=== PATIENT | male | born 1950 | race Caucasian/White ===

== ENCOUNTER 2021-06-04 10:09 | Outpatient (CLI) | payer OTHER, SELFPAY ==
[2021-06-04 10:59] LABS: Basophils Absolute Auto 0.1 K/mm3 (0.0-0.1); Basophils Percent Auto 0.9 % (0.2-1.2); Eosinophils Absolute Auto 0.1 K/mm3 (0-0.3); Hematocrit 48.7 % (42.0-52.0); Hemoglobin 16.5 g/dL (14.0-18.0); Immature Granulocyte Absolute 0.05 K/mm3 (0.00-0.031); Immature Granulocyte Percent A 0.5 % (0-0.5); Lymphocytes Absolute Auto 2.11 K/mm3 (0.9-3.2); Lymphocytes Percent Auto 19.3 % (18.3-44.2); Mean Corpuscular HGB Conc 33.9 g/dl (32-36); Mean Corpuscular Hemoglobin 32.4 pg (26-34); Mean Corpuscular Volume 95.7 fl (80-100); Monocytes Absolute Auto 0.9 K/mm3 (0.1-0.6); Monocytes Percent Auto 8.4 % (2.6-8.5); Neutrophils Absolute Auto 7.7 K/mm3 (1.3-6.7); Neutrophils Percent Auto 69.9 % (45.5-73.1); Platelet Count Result 284 k/mm3 (150-375); Red Blood Count 5.09 M/mm3 (4.6-6.20); Red Cell Distribution Width 12.1 % (11.5-14.5)
[2021-06-04 11:15] LABS: Alanine Aminotransferase 20 U/L (4-50); Albumin Level 4.4 g/dL (3.5-5.1); Alkaline Phosphatase 56 U/L (38-126); Anion Gap 8 mmol/L (8-16); Aspartate Amino Transferase 28 U/L (17-59); Bilirubin,Total 0.9 mg/dL (0.2-1.3); Blood Urea Nitrogen 13 mg/dL (9-20); Calcium 9.8 mg/dL (8.4-10.2); Carbon Dioxide 22 mmol/L (22-30); Chloride 110 mmol/L (98-107); Cholesterol 198 mg/dL (0-200); Estimated Glomerular Filt Rate > 60; Glucose 102 mg/dL (65-110); HDL Direct 51 mg/dL; Potassium 4.3 mmol/L (3.4-5.0); Sodium 140 mmol/L (137-145); Triglycerides 80 mg/dL (<150)
[2021-06-04 11:26] LABS: LDL Cholesterol Direct 117 mg/dL
[2021-06-04 11:41] LABS: Prostate Specific Antigen 37.1 ng/mL (< OR = 4.0)
[2021-06-04 12:22] LABS: Vitamin D 25 Hydroxy 45.7 ng/mL
== END 2021-06-04 10:10 | disposition home or self-care (01) ==
LOC: ANHLAB 10:21
PROVIDERS: PCP Internal Medicine; Visit Provider Internal Medicine
DX: E55.9 Vitamin D deficiency, unspecified (principal); I10 Essential (primary) hypertension; R19.5 Other fecal abnormalities; R97.20 Elevated prostate specific antigen [PSA]; E78.2 Mixed hyperlipidemia
CPT/HCPCS: 36415; 80053; 80061; 82306; 84153; 84443; 85025

== ENCOUNTER 2022-04-17 09:45 | Outpatient (CLI) | payer OTHER, SELFPAY ==
--- NOTE | ~2022-04-17 | US_ITS ---
EXAMINATION: US venous doppler LE RT DATE: 04/17/2022 11:04 INDICATION: Right lower limb pain. TECHNIQUE: Grayscale ultrasound images without and with compression and Doppler ultrasound images of the right lower extremity veins were obtained. COMPARISON: None. FINDINGS: The visualized portions of right common femoral vein, profunda (deep) femoral vein, femoral vein, pop liteal vein, peroneal veins, posterior tibial veins, and greater saphenous vein outflow are patent. IMPRESSION: 1. No deep venous thrombosis. Reviewed, dictated and finalized at location B.
--- NOTE | ~2022-04-17 | XR_ITS ---
EXAMINATION: XR hip BI 2V w AP pelvis DATE: 04/17/2022 11:16 INDICATION: Right hip pain. Sciatica. TECHNIQUE: An anteroposterior view of the pelvis and 2 views of each hip were obtained. COMPARISON: CT abdomen and pelvis 04/17/2022 FINDINGS: There is lumbar levocurvature and mild spondylosis. No fracture. There are widespread scler otic lesions of bone. There is a lytic lesion in right sacral ala. There is mild osteoarthritis of th e hips. IMPRESSION: 1. Widespread bone lesions, consistent with metastatic disease. 2. Mild osteoarthritis of the hips. Reviewed, dictated and finalized at location B.
--- NOTE | 2022-04-17 10:14 | ECG_ITS ---
Measurements Intervals [place] Rate: 94 P: 63 WV: 143 QRS: -18 QRSD: 87 T: 12 QT: 353 QTc: 442 Interpretive Statements SINUS RHYTHM LEFTWARD AXIS ABNORMAL ECG NO PREVIOUS ECG AVAILABLE FOR COMPARISON Electronically Signed On 04-17-2022 14:41:38 CDT by Channing Lott M.D.
[2022-04-17 10:28] LABS: Basophils Absolute Auto 0.1 K/mm3 (0.0-0.1); Eosinophils Absolute Auto 0.2 K/mm3 (0-0.3); Eosinophils Percent Auto 1.2 % (0-4.4); Hematocrit 38.9 % (42.0-52.0); Immature Granulocyte Absolute 0.31 K/mm3 (0.00-0.031); Immature Granulocyte Percent A 2.3 % (0-0.5); Lymphocytes Absolute Auto 1.19 K/mm3 (0.9-3.2); Lymphocytes Percent Auto 8.7 % (18.3-44.2); Mean Corpuscular HGB Conc 33.4 g/dl (32-36); Mean Corpuscular Hemoglobin 31.7 pg (26-34); Mean Corpuscular Volume 94.9 fl (80-100); Mean Platelet Volume 10.2 fl (7.4-10.4); Monocytes Absolute Auto 1.2 K/mm3 (0.1-0.6); Neutrophils Absolute Auto 10.7 K/mm3 (1.3-6.7); Neutrophils Percent Auto 77.8 % (45.5-73.1); Platelet Count Result 267 k/mm3 (150-375); Red Cell Distribution Width 13.1 % (11.5-14.5); White Blood Count 13.7 K/mm3 (4.5-10.0)
[2022-04-17 10:39] LABS: Alanine Aminotransferase 32 U/L (6-50); Alkaline Phosphatase 360 U/L (38-126); Anion Gap 10 mmol/L (8-16); Aspartate Amino Transferase 45 U/L (17-59); Blood Urea Nitrogen 45 mg/dL (9-20); Calcium 8.7 mg/dL (8.4-10.2); Carbon Dioxide 21 mmol/L (22-30); Chloride 108 mmol/L (98-107); Estimated Glomerular Filt Rate 13; Glucose 97 mg/dL (65-110); Potassium 4.9 mmol/L (3.4-5.0); Sodium 139 mmol/L (137-145)
== END 2022-04-17 09:46 | disposition home or self-care (01) ==
PROVIDERS: PCP Internal Medicine; Visit Provider Internal Medicine
DX: R97.20 Elevated prostate specific antigen [PSA] (principal); I10 Essential (primary) hypertension; M25.559 Pain in unspecified hip; M54.30 Sciatica, unspecified side; M79.89 Other specified soft tissue disorders; M16.0 Bilateral primary osteoarthritis of hip; R94.31 Abnormal electrocardiogram [ECG] [EKG]
CPT/HCPCS: 36415; 73521; 80053; 84153; 85025; 93005; 93971

== ENCOUNTER 2022-04-17 11:26 | Inpatient (IN) | payer OTHER, SELFPAY ==
[2022-04-17] VITALS (12 sets, daily range): BP systolic 155–186; BP diastolic 87–102; PULSE 96–113; RESP 16–28; TEMP 36.4–36.8; O2SAT 94–98; BMI 27.6
--- NOTE | ~2022-04-17 | XR_ITS ---
EXAM: XR bone survey comp/metastic DATE: 04/19/2022 14:53 HISTORY: bony mets . COMPARISON: None available. FINDINGS: Senescent changes with multifocal peripheral interstitial opacities. Unremarkable cardiome diastinal silhouette. Aerated spaces in the skull are clear. Mildly decreased mineralization. No frac ture or dislocation. Known sclerotic rib lesions are less well seen radiographically. Multifocal scle rotic lesions in the mid and distal right humerus. Known lytic lesion in the right sacrum better seen by CT. Multifocal ill-defined sclerotic lesions in the pelvis and proximal bilateral femurs. Moderat e right glenohumeral and AC joint degenerative change. Multilevel degenerative disc disease in the sp ine. No erosion or periosteal change. Soft tissues within normal limits. Midline pelvic catheter. IMPRESSION: Sclerotic pelvic and bilateral proximal femur lesions. Likely right mid and distal devante l sclerotic lesions. Additional sclerotic lesions in the ribs and spine and a lytic right sacral lesi on better seen by prior CT. Pulmonary opacities may reflect atypical/viral pneumonia overlying senesc ent changes. Reviewed, dictated and finalized at location K. IMPRESSION: Sclerotic pelvic and bilateral proximal femur lesions. Likely right mid and distal humeral sclerotic lesions. Additional sclerotic lesions in the ribs and spine and a lytic right sacral lesion better seen by prior CT. Pulmona ry opacities may reflect atypical/viral pneumonia overlying senescent changes.
--- NOTE | ~2022-04-17 | CT_ITS ---
EXAMINATION: CT abdomen pelvis wo con DATE: 04/17/2022 12:29 INDICATION: Abdominal pain. TECHNIQUE: Computed tomography (CT) of the abdomen and pelvis was performed without intravenous contr ast. Automated exposure control and iterative reconstruction technique were employed. The dose-length product was 433.27 mGy-cm. COMPARISON: None. FINDINGS: There are patchy airspace and groundglass opacities associated with septal thickening in th e lower lobes, right middle lobe, and lingula. There is mild bronchiectasis bilaterally. No pleural e ffusion. The heart size is normal. There are coronary artery calcifications. No pericardial effusion. There is an 8 mm cyst in the liver. The gallbladder is normal. Calcifications in the spleen are cons istent with old granulomatous disease. The pancreas and adrenal glands are normal. There is mild bila teral hydronephrosis and hydroureter. The bladder is markedly distended. The prostate is mildly enlar ged. There is a left inguinal hernia containing fat. There is diverticulosis of the colon without maryann dence of diverticulitis. There are no dilated loops of bowel. The appendix is normal. There are wides pread sclerotic lesions of bone. There is a lytic lesion in right sacral ala. IMPRESSION: 1. Widespread bone lesions, consistent with metastatic disease. 2. Diffuse lung disease, likely atypical pneumonia such as COVID-19 pneumonia. 3. Markedly distended bladder with mild bilateral hydronephrosis and hydroureter. Reviewed, dictated and finalized at location B. IMPRESSION: 1. Widespread bone lesions, consistent with metastatic disease. 2. Diffuse lung disease, likely atypical pneumonia such as COVID-19 pneumonia. 3. Markedly distended bladder with mild bilateral hydronephrosis and hydrourete r.
--- NOTE | ~2022-04-17 | XR_ITS ---
EXAMINATION: XR chest 1V portable DATE: 04/17/2022 13:16 INDICATION: Cough. Weakness. TECHNIQUE: A single frontal view of the chest was obtained. COMPARISON: CT abdomen and pelvis 04/17/2022 FINDINGS: There are patchy airspace and interstitial opacities in all lung zones bilaterally. No pleu ral effusion or pneumothorax. The heart size is normal. IMPRESSION: 1. Diffuse lung disease suspicious for atypical pneumonia such as COVID-19 pneumonia. Reviewed, dictated and finalized at location B. IMPRESSION: 1. Diffuse lung disease suspicious for atypical pneumonia such as COVID-19 pneu monia.
--- NOTE | ~2022-04-17 | MR_ITS ---
EXAMINATION: MR lumbar spine wo con DATE: 04/20/2022 08:17 INDICATION: Bony metastases presenting with low back pain TECHNIQUE: Magnetic resonance imaging (MRI) of the lumbar spine was performed without intravenous con trast. Sequences included sagittal T2-weighted FSE, sagittal T2-weighted FS FSE, sagittal T1-weighted FSE, axial T1-weighted FSE and axial T2-weighted FSE. COMPARISON: CT dated 04/17/2022 FINDINGS: Alignment is normal. Vertebral body heights are normal. Widespread T1 hypointense likely metastatic bone lesions replacing the normal T1 hyperintense marrow fat throughout the visualized bones most prominent at the right sacral ala where there appears to be a nondisplaced sagittally oriented pathologic/insufficiency fracture with secondary associated reacti ve edema. No other fractures identified. Mild right-sided disc height loss at L4-5.. The conus medull monica terminates at L1. There is normal signal in the caudal spinal cord. Paravertebral soft tissues a re unremarkable. 1.4 cm T2 hyperintense right renal cyst. Mild to moderate left hydroureteronephrosis . The following disc levels are specifically discussed: T12-L1: The disc does not extend beyond the endplate margin. There is mild left and moderate right fa cet joint osteoarthritis. There is no neural foraminal stenosis. There is no central canal stenosis. L1-L2: Disc is mildly bulging. There is moderate bilateral facet joint osteoarthritis. There is mild bilateral neural foraminal stenosis. There is mild central canal stenosis. L2-L3: Disc is bulging. There is moderate right and mild left facet joint osteoarthritis. There is mi ld bilateral neural foraminal stenosis. There is mild central canal stenosis. L3-L4: Disc is minimally bulging. There is mild to moderate bilateral facet joint osteoarthritis. The re is mild bilateral neural foraminal stenosis. There is no central canal stenosis. L4-L5: Disc is bulging. There is hypertrophy of the ligamentum flavum. There is severe bilateral fac et joint osteoarthritis. There is moderate right and mild to moderate left neural foraminal stenosis. There is mild central canal stenosis including narrowing of the left and right lateral recesses. L5-S1: Disc is bulging. There is severe bilateral facet joint osteoarthritis. There is mild bilateral neural foraminal stenosis. There is mild, eccentric to the right central canal stenosis with narrowi ng of the right lateral recess. IMPRESSION: 1. Widespread metastatic disease with nondisplaced sagittally oriented pathologic/insufficiency fract ure of the right sacral ala. 2. Lumbar spondylosis with multilevel mild degenerative disease. Moderate to severe mid to lower lumb ar facet osteoarthritis. 3. Mild to moderate left hydroureteronephrosis which given findings on prior CT of mild bilateral hyd roureteronephrosis and marked distention of the bladder suggests outlet obstruction from the enlarged prostate. Reviewed, dictated and finalized at location B. IMPRESSION: 1. Widespread metastatic disease with nondisplaced sagittally oriented patholog ic/insufficiency fracture of the right sacral ala. 2. Lumbar spondylosis with multilevel mild degenerative disease. Moderate to se nito mid to lower lumbar facet osteoarthritis. 3. Mild to moderate left hydroureteronephrosis which given findings on prior CT of mild bilateral hydroureteronephrosis and marked distention of the bladder s uggests outlet obstruction from the enlarged prostate.
--- NOTE | ~2022-04-17 | XR_ITS ---
EXAMINATION: XR chest 2V DATE: 04/20/2022 09:56 INDICATION: Lung disease, COVID 19 TECHNIQUE: AP and lateral views of the chest are obtained. COMPARISON: 04/17/2022 FINDINGS: Patchy interstitial and airspace opacities persist throughout all lung zones with slight im provement. There is no pleural effusion or pneumothorax. The cardiomediastinal silhouette is normal. There are bridging osteophytes at multiple levels in the spine, consistent with diffuse idiopathic sk eletal hyperostosis (DISH). IMPRESSION: 1. Diffuse lung disease with slight improvement, consistent with COVID 19 pneumonia. Reviewed, dictated and finalized at location A. IMPRESSION: 1. Diffuse lung disease with slight improvement, consistent with COVID 19 pneum onia.
--- NOTE | ~2022-04-17 | US_ITS ---
EXAMINATION: US venous doppler [facility] DATE: 04/18/2022 10:22 INDICATION: edema, left lower limb pain. TECHNIQUE: Grayscale images without and with compression and Doppler images of the left lower extremi ty veins were obtained. COMPARISON: None FINDINGS: The left common femoral vein, profunda femoral vein, femoral vein, popliteal vein, peroneal vein, pos terior tibial veins, and greater saphenous vein are patent. IMPRESSION: 1. Patent left lower extremity veins. No evidence of deep venous thrombosis. Reviewed, dictated and finalized at location K.
--- NOTE | ~2022-04-17 | US_ITS ---
EXAMINATION: US renal BI DATE: 04/18/2022 10:22 INDICATION: bph TECHNIQUE: Multiple grayscale and Doppler ultrasound images of the kidneys were obtained. COMPARISON: CT abdomen and pelvis 04/17/2022. FINDINGS: The right kidney measures 10.6 x 4.5 x 5.7 cm. The left kidney measures 9.7 x 5.3 x 4.6 cm. The kidne ys demonstrate normal parenchymal echogenicity.No sonographic evidence of nephrolithiasis. 1.1 cm rig ht midpole simple cyst mild bilateral hydronephrosis. The bladder is decompressed by a Son. IMPRESSION: 1. Mild bilateral hydronephrosis. 2. Simple right midpole cyst. Reviewed, dictated and finalized at location K.
--- NOTE | ~2022-04-17 | NM_ITS ---
EXAMINATION: NM pulmonary perfusion DATE: 04/20/2022 09:45 INDICATION: Shortness of breath. TECHNIQUE: 5.5 mCi Tc-99m MAA was administered intravenously for perfusion images. Scintigraphic mitch ges of the chest were obtained. COMPARISON: Chest 2 views 04/20/2022 FINDINGS: Perfusion images show small defects in the upper lobes and lower lobes. There is a matched moderate s ized defects in right upper lobe. IMPRESSION: 1. Nondiagnostic (intermediate probability for pulmonary embolism). Reviewed, dictated and finalized at location A.
--- NOTE | 2022-04-17 12:14 | PC.NURSE ---
Pt states he has not been able to give a urine specimen.
[2022-04-17 12:21] LABS: INR 1.2; Partial Thromboplastin Time 32.7 SECONDS (22.3-36.8); Prothrombin Time 14.5 Seconds (11.1-14.7)
--- NOTE | 2022-04-17 12:22 | PC.NURSE ---
pt to CT via stretcher
--- NOTE | 2022-04-17 12:35 | PC.NURSE ---
Pt returned from CT via stretcher
--- NOTE | 2022-04-17 13:11 | PC.NURSE ---
Pt noted to have blood around urinary meatus post catheter insertion. Pt cleansed.
[2022-04-17 13:35] LABS: SARS-CoV-2 RNA PCR Positive
--- NOTE | 2022-04-17 13:42 | PC.NURSE ---
Pt noted to have 2000 ml urine output, lei bag clamped.
--- NOTE | 2022-04-17 13:52 | PC.NURSE ---
Pt moved to private room and visitors asked to leave.
[2022-04-17 13:54] LABS: Lactic Acid Reflex 1.5 mmol/L (0.7-2.0)
[2022-04-17 14:28] LABS: Add Urine Microscopic? YES; Appearance Urine Clear (Clear); Bilirubin Urine Negative (Negative); Blood Urine Negative (Negative); Color Urine Amber (Yellow); Glucose Urine UA Negative (Negative); Ketones Urine Negative (Negative); Leukocyte Esterase Ur Negative LEU/UL (Negative); Nitrate Urine Positive (Negative); Protein Urine Trace mg/dL (Negative); Urobilinogen Urine 0.2 mg/dL (<2.0); pH Urine 5.5 (5.0-9.0)
[2022-04-17] MEDS: SODIUM CHLORIDE 0.9% IV 1,000 ML 80 ML IV CONT (14:35)
[2022-04-17] MEDS: HYDROcodone/acetaminophen (*CRX) 5-325 MG TABLET 1 TAB PO (14:35)
--- NOTE | 2022-04-17 14:37 | ED.GENADULT ---
HPI - General Adult General Chief complaint: Recheck/Abnormal Lab/Rx Stated complaint: Sent by PCP after Tests today Time Seen by Provider: 04/17/22 11:30 Source: RN notes reviewed History of Present Illness HPI narrative: Patient presents emergency department from home for abnormal lab work. The patient states that he had gone to 's office today states that he had not seen him for some time and had been having some back pain recently he states he recently gone to the urgent care and been placed on steroids daily pain states that his PCP had ordered a lab test as well as a lower extremity ultrasound and then to be referred to the emergency department for further evaluation he denies any fevers or chills, chest pain shortness of breath states he has been having some lower abdominal pain and also some difficulty urinating. He denies any direct trauma or injury to his back that he is but he has been having aching in his lower back going into his right hip Related Data Home Medications Medication Instructions Recorded Confirmed kosfiuxs-[id number] acid 300 1 tablet PO DAILY 05/27/21 04/17/22 mcg-lycopene 600 mcg-lutein 300 mcg tablet (Centrum Silver Men) omeprazole magnesium 20 mg 20 mg PO DAILY 05/27/21 04/17/22 tablet,delayed release (Prilosec OTC) aspirin 81 mg tablet,delayed 81 mg PO DAILY 06/02/21 04/17/22 release (Adult Aspirin Regimen) Allergies Allergy/AdvReac Type Severity Reaction Status Date / Time No Known Allergies Allergy Verified 04/17/22 15:16 Review of Systems Review of Systems: Gen.: Denies fevers or chills Eyes: Denies eye pain or visual change ENT: Denies congestion Respiratory: Denies shortness of breath or cough CV: Denies chest pain or palpitations GI: Reports lower abdominal pain nausea, emesis or diarrhea reports difficulty urinating Musculoskeletal: See HPI Neuro: Denies numbness, tingling, weakness or focal weakness Skin: Denies rash Except as documented, all other systems reviewed and negative [facility] Past Medical History Medical History Elevated PSA (06/2021) Hypertension Positive colorectal cancer screening using Cologuard test (06/2021) Has yet to have a colonoscopy as of April 2022. Surgical History Surgical History History of cardiac catheterization History of left inguinal hernia repair (07/05/15) History of right inguinal hernia repair (01/25/19) Family History Family History Mother Family history of liver disease Sibling Family history of malignant neoplasm Father Family history of kidney disease Other Family history of cardiovascular disease Hypertension Social History Social History Social History: Surrogate decision maker: More Gil, sister. Code status: Full code. Smoking packs per day: 1 Smoking cigarettes per day: 20.0 Years smoked: 20 Smoking pack-years: 20.00 Smoking status: Former smoker Second hand tobacco smoke exposure: Yes Alcohol intake: never Substance use: current Substance use type: marijuana Living arrangements: alone Occupation/Education: retired Spiritual care concerns: No Exam Narrative: APPEARANCE: No acute distress, nontoxic, resting in bed HEENT: Normocephalic, atraumatic, OMM RESPIRATORY: No respiratory distress, clear to auscultation bilaterally with no rhonchi wheezing or rales CARDIOVASCULAR: RRR s murmur ABDOMINAL: Soft nondistended tender palpation right lower quadrant left lower quadrant no tenderness right upper quadrant left quadrant no rebound or guarding Back: No midline thoracic lumbar tenderness palpation, MUSCULOSKELETAl: Moves all extremities. No clubbing, cyanosis or edema. Tender palpation of the right lateral hip no swelling or ecchymosis full rang
--- NOTE | 2022-04-17 15:00 | PM.IMHP ---
H&P: HPI History of Present Illness Date/Time: 04/17/22 15:00 Chief Complaint: Abnormal labs. Narrative: This is a very pleasant 71-year-old male with hypertension who presented to the emergency department at the instruction of his primary care provider for evaluation of abnormal labs. Several weeks ago he developed right hip pain while out mowing the grass for which he was prescribed diclofenac and a Medrol Dosepak on 04/03/2022. Unfortunately his pain is not better and he has since developed pitting edema in the right leg. He has also had difficulties urinating with urgency, hesitancy, frequency, dysuria, and feelings of being unable to empty his bladder. He saw Dr. Rabago in follow-up today and he was sent for labs and venous Doppler ultrasound of the right leg. Dopplers were negative for DVT. Labs showed several abnormalities including a markedly elevated PSA and a BUN and creatinine of 45 and 4.60 respectively, and he was sent to the ER for evaluation. CT of the abdomen and pelvis showed widespread bone lesions consistent with metastatic disease, markedly distended bladder with mild bilateral hydronephrosis and hydroureter, and diffuse lung disease. Subsequent SARS-CoV-2 by PCR did come back positive. With further questioning, he has noticed some mild shortness of breath with exertion over the past couple of weeks in addition to occasional lightheadedness/dizziness. He denies fever, chills, sweats, sinus congestion, sore throat, change in smell and taste, cough, nausea, vomiting, and diarrhea. He has no known history of malignancy however he was told last fall that PSA was elevated and Cologuard was positive though he did not follow-up with either Gastroenterology or Urology. At the time my evaluation he is feeling much better after his bladder has been drained, and is noted that he has had 3000 mL of urine output since the Son catheter was inserted. Review of Systems Review of Systems: Twelve systems were reviewed. He has lost about 30 lb unintentionally over the past several months. He has not noticed any lymphadenopathy. Occasional bright red blood per rectum which he attributes to a known external hemorrhoids. No history of venous thromboembolism. He denies chest pain, pleuritic pain, and palpitations. No orthopnea orthopnea or paroxysmal nocturnal dyspnea. He has been walking with a walker that his sister gave him recently due to the dizziness. He reports having a couple of falls recently but he has not sustained any injury. No syncope or near syncope. No auditory visual changes. No focal weakness or paresthesias. No confusion. Except as documented, all other systems were reviewed and are negative. [facility] Past Medical History Medical History (Updated 04/17/22 @ 17:26 by Katalina Dsouza PA-C) Elevated PSA (06/2021) Hypertension Positive colorectal cancer screening using Cologuard test (06/2021) Has yet to have a colonoscopy as of April 2022. Surgical History Surgical History (Updated 04/17/22 @ 17:04 by Katalina Dsouza PA-C) History of cardiac catheterization History of left inguinal hernia repair (07/05/15) History of right inguinal hernia repair (01/25/19) Family History Family History Mother Family history of liver disease Sibling Family history of malignant neoplasm Father Family history of kidney disease Other Family history of cardiovascular disease Hypertension Social History Social History (Updated 04/17/22 @ 17:05 by Katalina Dsouza PA-C) Social History: Surrogate decision maker: More Gil, sister. Code status: Full code. Smoking packs per day: 1 Smoking cigarettes per day: 20.0 Years smoked: 20 Smoking pack-years: 20.00 Smoking status: Former smoker Second hand tobacco smoke exposure: Yes Alcohol intake: never Substance use: current Substance use type: marijuana Living arrangements: alone Occupation/Education:
--- NOTE | 2022-04-17 15:13 | ADMGEN ---
This patient, Adolph Chicas, was admitted to Medical Room 343-01. Patient/family oriented to hospital policies and general routines including ID bracelet, bed and alarms, visiting hours, pain management, procedures, bathroom and other care routines, personal items, smoking policy, room service/diet, and visiting hours. Information on how to activate the Rapid Response Team has been discussed. Patient/Family are encouraged to report perceived risks to care and to ask questions if they do not understand what they are told or what they should do.
--- NOTE | 2022-04-17 15:30 | WPDURCON ---
Assessment and Plan Assessment and plan (1) Urinary retention: Code(s): R33.9 - Retention of urine, unspecified Status: Acute Assessment and Plan: 3L of output after insertion of lei. (2) Acute kidney injury: Code(s): N17.9 - Acute kidney failure, unspecified Status: Acute Assessment and Plan: Likely secondary to urinary retention, will continue to monitor, but I suspect this will improve s/p cath placement. (3) Elevated PSA: Onset Date: 06/2021 Code(s): R97.20 - Elevated prostate specific antigen [PSA] Status: Acute Assessment and Plan: >100 today, was 37.1 on 06/04/21. The patient appears to have suspected metastatic prostate cancer, however there has been no biopsy to confirm. Once patient has been discharged, we will plan to do an outpatient prostate biopsy in the office next Wednesday with Dr. Jessica. Send patient home on Levaquin PO 500mg QD x7 days prior to biopsy. We will then plan to start ADT therapy when biopsy results return. No further evaluation while admitted. (4) BPH (benign prostatic hyperplasia): Code(s): N40.0 - Benign prostatic hyperplasia without lower urinary tract symptoms Status: Acute Assessment and Plan: Start Tamsulosin, keep lei in for at least 7-10 days before a voiding trial can be done in the office. (5) UTI (urinary tract infection): Code(s): N39.0 - Urinary tract infection, site not specified Status: Acute Assessment and Plan: Urine Culture and blood cultures are pending, start IV antibiotics. (6) Hydronephrosis: Code(s): N13.30 - Unspecified hydronephrosis Status: Acute Plan Will plan to get a FABI in a couple of days to ensure resolution s/p catheter insertion. Urology Consult Note HPI Date Seen: 04/17/22 Time Seen: 15:30 Requesting Physician: Juwan Garza MD Primary Care Provider: Suman Rabago MD Consult Narrative Reason for consult: HILDA, elevated PSA, retention and Bone Metastatic Disease. Narrative: Adolph Chicas is a 71 year old male who presented to the ER today following an appointment with his PCP Dr. Rabago. He was sent to the hospital to have some labs done and was called when leaving and told to go to the ER for HILDA to be further evaluated. He was found in the ER to be COVID +, have a creatinine of 4.6, a PSA of >100 and WBC of 13.7. His previous PSA in 06/04/21 was 37.1 and baseline creatinine was 0.90 on 06/04/21. He was found to be in urinary retention and have >3L of urine in his bladder upon catheter insertion. He states he was not in pain, but had been urinating every 15 minutes day and night for several weeks. He is hypertensive and tachycardic at this time, but afebrile. His CT scan shows widespread metastatic bone lesions, distended bladder with bilateral hydronephrosis. UA is nitrate positive, urine cultures and blood cultures are pending at this time. The patient states he has never seen a urologist even after his rising PSA that was known in 06/21. However, he did see Dr. Pierce in 05/2015 and had a PSA of 9.4. He was recommended to schedule a prostate biopsy at that time, however he didn't follow up and that was the last office visit from him. It sounds as though after reading Dr. Rabago's note he has also had occult blood in his stool and needs further workup but is non-compliant. Review of Systems Cardiovascular: Cardiovascular: Denies chest pain Respiratory: Respiratory: Reports no additional respiratory complaints Gastrointestinal: Gastrointestinal: Denies abdominal pain, Denies nausea and Denies vomiting Genitourinary: Genitourinary: Denies hematuria, Denies dysuria, Denies flank pain, Reports urinary frequency, Reports urinary hesitancy and Reports urinary urgency PMFSH Past Medical History Medical History Elevated PSA (06/2021) Hypertension Positive colorectal cancer screening usi
[2022-04-17 16:24] LABS: Bacteria Urine Trace /hpf; Squamous Epithelial Cell Urine Rare /hpf (Few)
[2022-04-17 18:10] LABS: D Dimer 14.04 ug/mL (<0.48)
[2022-04-17 18:17] LABS: CRP 1.9 mg/dL (<1.0)
[2022-04-17 18:24] LABS: NT Pro B Type Natriuretic Pept 1680 pg/mL (5-100)
--- NOTE | 2022-04-17 18:43 | PC.NURSE ---
HILIARY JIMMY WISDOM NOTIFIED OF D DIMER
[2022-04-17 18:52] LABS: Procalcitonin 0.3 ng/mL
[2022-04-17] MEDS: amLODIPine BESYLATE 5 MG TABLET PO (19:02)
[2022-04-17] MEDS: traMADol HCL (*CRX) 50 MG TABLET PO (21:59)
[2022-04-17] MEDS: ENOXAPARIN 100 MG/ML SYRINGE 85 MG SUB-Q (21:59)
--- NOTE | 2022-04-17 22:00 | PC.NURSE ---
Patient verified home tube feedings using Glucerna 1.5. Patient states that he does not want a bolus this evening and that he just wants to sleep.
[2022-04-18] VITALS (7 sets, daily range): BP systolic 141–169; BP diastolic 90–100; PULSE 85–124; RESP 16–20; TEMP 36.9–37; O2SAT 93–97
[2022-04-18 05:38] LABS: Basophils Absolute Auto 0.1 K/mm3 (0.0-0.1); Basophils Percent Auto 1.1 % (0.2-1.2); Eosinophils Absolute Auto 0.3 K/mm3 (0-0.3); Hematocrit 36.4 % (42.0-52.0); Hemoglobin 12.2 g/dL (14.0-18.0); Immature Granulocyte Absolute 0.27 K/mm3 (0.00-0.031); Immature Granulocyte Percent A 2.2 % (0-0.5); Lymphocytes Absolute Auto 1.48 K/mm3 (0.9-3.2); Mean Corpuscular HGB Conc 33.5 g/dl (32-36); Mean Corpuscular Hemoglobin 31.7 pg (26-34); Mean Corpuscular Volume 94.5 fl (80-100); Mean Platelet Volume 10.2 fl (7.4-10.4); Monocytes Absolute Auto 1.2 K/mm3 (0.1-0.6); Monocytes Percent Auto 9.3 % (2.6-8.5); Neutrophils Absolute Auto 9.1 K/mm3 (1.3-6.7); Neutrophils Percent Auto 73.4 % (45.5-73.1); Platelet Count Result 218 k/mm3 (150-375); Red Blood Count 3.85 M/mm3 (4.6-6.20); Red Cell Distribution Width 12.9 % (11.5-14.5); White Blood Count 12.3 K/mm3 (4.5-10.0)
[2022-04-18 05:51] LABS: Alanine Aminotransferase 28 U/L (6-50); Albumin Level 3.5 g/dL (3.5-5.1); Alkaline Phosphatase 309 U/L (38-126); Anion Gap 6 mmol/L (8-16); Aspartate Amino Transferase 41 U/L (17-59); Bilirubin,Total 0.9 mg/dL (0.2-1.3); Blood Urea Nitrogen 34 mg/dL (9-20); Calcium 8.6 mg/dL (8.4-10.2); Carbon Dioxide 23 mmol/L (22-30); Chloride 109 mmol/L (98-107); Estimated CRCL calculation 21 ml/min; Estimated Glomerular Filt Rate 21; Glucose 85 mg/dL (65-110); Potassium 4.5 mmol/L (3.4-5.0); Sodium 138 mmol/L (137-145)
[2022-04-18 05:53] LABS: Magnesium 1.8 mg/dL (1.6-2.3); Phosphorus 4.3 mg/dL (2.5-4.5)
[2022-04-18 06:45] LABS: D Dimer 14.29 ug/mL (<0.48)
[2022-04-18] MEDS: amLODIPine BESYLATE 5 MG TABLET PO (09:45)
[2022-04-18] MEDS: PANTOPRAZOLE 40 MG TABLET PO (09:45)
[2022-04-18] MEDS: ASPIRIN 81 MG ENTERIC TABLET PO (09:45)
[2022-04-18] MEDS: OPTI-GEN TAB 1 TABLET PO (09:45)
[2022-04-18] MEDS: TAMSULOSIN HCL 0.4 MG CAPSULE PO (09:45)
--- NOTE | 2022-04-18 12:35 | PM.IMPN ---
Progress Note: A&P Assessment and Plan (1) Acute kidney injury: Code(s): N17.9 - Acute kidney failure, unspecified Status: Acute Assessment and Plan: Related to urinary retention compliated by his medications. He does not appear dry and is eating well so will continue to hold on further IV fluids especially since he has COVID as well. Renal function is improved today. Continue to hold lisinopril and hydrochlorothiazide. Nephrology following. Appreciate their input. Continue to monitor. (2) Urinary retention: Code(s): R33.9 - Retention of urine, unspecified Status: Acute Assessment and Plan: Patient was noted to distended bladder by the CT scan. Son catheter placed and patient had put out over 3 L of urine. Urine retention related to BPH and probably prostate cancer. Urology recommended tamsulosin which was started. Plan is to keep Son in for at least 7 to 10 days before a voiding trial can be done in office. Appreciate urology input. (3) Hydroureteronephrosis: Code(s): N13.30 - Unspecified hydronephrosis Status: Acute Assessment and Plan: Related to urinary retention. This should improve now that Son catheter is in place. Repeat imaging has been ordered to verify resolution. (4) Elevated PSA: Onset Date: 06/2021 Code(s): R97.20 - Elevated prostate specific antigen [PSA] Status: Acute Assessment and Plan: Patient has a history of elevated PSA noted in 2019. Patient presents with acute kidney injury from an obstructive process related to BPH and probably prostate cancer. His PSA is now 942. Imaging studies shows widespread bony metastases. Urology was consulted with plans for an outpatient prostate biopsy in the office next Wednesday with Dr. Jessica. They recommend Levaquin 500 mg daily for 7 days prior to the biopsy depending on renal function at discharge. (5) Pneumonia due to COVID-19 virus: Code(s): U07.1 - COVID-19; J12.82 - Pneumonia due to coronavirus disease 2018 Status: Acute Assessment and Plan: He endorsed mild shortness of breath to the admitting provider but denies SOB or cough now. No indication for dexamethasone or remdesivir at this time. Follow. He was encouraged to have his COVID vaccine when okay with his doctor. (6) Positive colorectal cancer screening using Cologuard test: Onset Date: 06/2021 Code(s): R19.5 - Other fecal abnormalities Status: Acute Assessment and Plan: Cologuatorrie was last fall. He attributes occasional bright red blood per rectum to external hemorrhoids. Patient encouraged to follow-up with gastroenterology for a colonoscopy as an outpatient. Add Colace and Tucks pads (7) Hypertension: Code(s): I10 - Essential (primary) hypertension Status: Acute Assessment and Plan: Blood pressures were reviewed and they are still running high. Lisinopril and hydrochlorothiazide remain on hold. Amlodipine was started. BP has not been checked since this moring dose so will monio for now. (8) Lower extremity edema: Code(s): R60.0 - Localized edema Status: Acute Assessment and Plan: Ultrasound is negative for right leg DVT. Pulmonary embolism considered given his mild shortness of breath, tachycardia, and evidence of malignancy on imaging though he is not hypoxic or tachypneic. HILDA prevents CTA chest and a V/Q scan would be less than ideal. Will follow up on he LLE Doppler. If negative, consider moving to a VQ scan. D-dimer is significantly elevated but probably related to his cnacer. Continue therapeutic, renally dosed Lovenox for now (9) Abnormal urinalysis: Code(s): R82.90 - Unspecified abnormal findings in urine Status: Acute Assessment and Plan: UA noted. UCx pending. Continue ceftriaxone (10) Bony metastasis: Code(s): C79.51 - Secondary malignant neoplasm of bone Status: Acute
--- NOTE | 2022-04-18 13:08 | PM.CNNEP ---
Assessment and Plan Additional Plan 1. the patient has acute kidney injury. This is on top of normal creatinine. He has prostatic obstruction. This is been relieved with a Son catheter and his creatinine is improving. His potassium was amazingly well preserved. His bicarbonate level is a little bit low but has corrected itself this morning. Patient does have chronic hypertension but his baseline creatinine is normal so I do not think this has anything to do with his elevated creatinine. 2. The patient has a very high PSA and appearance of bony Mets on his imaging. Dr. Jessica is on the case. 3. The patient has hypertension. He has never had a heart attack or stroke. It is always been under pretty good control before now. Currently, his blood pressure is a little bit on the high side. He takes hydrochlorothiazide and lisinopril for this. Amlodipine has been started to control his blood pressure. 4. the patient has a positive cologard. He will be getting a colonoscopy at some point. 5. History of Present Illness Reason for Consult Consult date: 04/18/22 Chief Complaint Chief complaint: covid 19,urinary retention,acute failure History of Present Illness Narrative: Adolph is a very pleasant 71-year-old gentleman who has multiple medical problems including longstanding Hypertension, BPH symptoms, and a positive cologard. The patient has had gradually progressive issues with frequency, decreased urinary stream, urgency . He went to see his primary care doctor who checked some labs and his creatinine was elevated so he was sent to the emergency room. The patient has been having some right hip pain. He was treated with diclofenac and a Medrol Dosepak for that but it did not really do any good. So a venous Doppler was done and this was negative as well. Along with the labs showing the elevated creatinine, a PSA was done which was greater than 100. He was evaluated in the emergency room and found to have a distended bladder. A bladder catheter was placed. They drained 1L at a time for a total of 3.5L apparently. He continues to urinate lots through the Son. Overnight his creatinine has improved from 4-2. The patient denies any prior history of kidney disease. No urinary symptoms except for the above. He denies any skin rash itching sores in his mouth hair loss. Review of Systems Constitutional: Constitutional: Reports no additional constitutional complaints Eyes: Eyes: Reports no additional eye complaints ENT: Reports system reviewed and no additional complaints, except as documented Cardiovascular: Cardiovascular: Reports no additional cardiovascular complaints Respiratory: Respiratory: Reports no additional respiratory complaints Gastrointestinal: Gastrointestinal: Reports no additional gastrointestinal complaints Genitourinary: Genitourinary: Reports no additional male genitourinary complaints Musculoskeletal: Musculoskeletal: Reports no additional musculoskeletal complaints Integumentary/Breasts: Skin/Breast: Reports system reviewed and no additional complaints, except as docu Neurologic: Reports system reviewed and no additional complaints, except as documented Psychiatric: Psychiatric: Reports no additional psychiatric complaints Endocrine: Endocrine: Reports no additional endocrine complaints PMF Past Medical History Medical History Elevated PSA (06/2021) Hypertension Positive colorectal cancer screening using Cologuard test (06/2021) Has yet to have a colonoscopy as of April 2022. Surgical History Surgical History History of cardiac catheterization History of left inguinal hernia repair (07/05/15) History of right inguinal hernia repair (01/25/19) Family History Family History Mother Family history
[2022-04-18] MEDS: DOCUSATE SODIUM 100 MG CAPSULE PO ×2 (14:07→21:06)
--- NOTE | 2022-04-18 17:23 | ECHO_ITS ---
Patient Info Name: Adolph Chicas Age: 71 years : 1950 Gender: Male Ht: 69 in Wt: 186 lbs BSA: 2.04 m2 HR: 80 bpm BP: 169 / 100 mmHg Heart Rhythm: Sinus Rhythm Technical Quality: Fair Exam Date: 04/18/2022 12:47 PM Exam Location: [facility] Exam Room: 343 Patient Status: Inpatient Admit Date: 04/17/2022 Staff Ordering Physician: Katalina Dsouza PA-C [employer]: Britt Cunha RDCS Attending Provider: Juwan Garza MD Referring Physician: Lianna LEYVA; Exam Type: CA echo doppler color flow Study Info Indications - PULM IIINFILTRATES HTN EDEMA Complete two-dimensional, color flow and Doppler transthoracic echocardiogram is performed. Summary 1. Complete two-dimensional, color flow and Doppler transthoracic echocardiogram is performed. 2. Left ventricular chamber dimension is normal. 3. Left ventricular systolic function is normal, estimated at 60-65%. 4. There is no increased left ventricular wall thickness. 5. The left ventricular diastolic function is grade I diastolic dysfunction. 6. There is trace tricuspid valve regurgitation. 7. No pulmonary hypertension, estimated pulmonary arterial systolic pressure is 32 mmHg. Left Ventricle Left ventricular chamber dimension is normal. Left ventricular systolic function is normal, estimated at 60-65%. There is no increased left ventricular wall thickness. The left ventricular diastolic function is grade I diastolic dysfunction. Right Ventricle Right ventricular chamber dimension is normal. Right ventricular systolic function is normal. Left Atria Left atrial chamber dimension is mildly enlarged. Right Atria Right atrial chamber dimension is normal. Aortic Valve The aortic valve is not well visualized. There is no aortic valve stenosis. There is no aortic valve regurgitation. Pulmonic Valve The pulmonic valve is not well visualized. Mitral Valve The mitral valve has thickened leaflets. There is trace mitral valve regurgitation. The mitral valve annulus is mildly calcified. Tricuspid Valve The tricuspid valve leaflets are normal. There is trace tricuspid valve regurgitation. No pulmonary hypertension, estimated pulmonary arterial systolic pressure is 32 mmHg. Pericardium/Pleural The pericardium appears normal. There is a small pericardial effusion with fibrinous material within the pericardial space. No evidence for tamponade physiology. Inferior Vena Cava Normal inferior vena cava with >50% collapse upon inspiration consistent with normal right atrial pressure, 5 mmHg. Aorta The aortic root size at the sinus of Valsalva is normal. There is mild aortic atherosclerosis. Left Ventricular Outflow Tract Name Value Normal LVOT 2D LVOT Diameter 2.1 cm LVOT Doppler LVOT Peak Gradient 5 mmHg LVOT Mean Gradient 2 mmHg LVOT VTI 18 cm LVOT VTI/AV VTI Ratio 0.8 LVOT Stroke Volume 66 ml LVOT CO 15.5 l/min
[2022-04-18] MEDS: traMADol HCL (*CRX) 50 MG TABLET PO (21:07)
[2022-04-18] MEDS: ENOXAPARIN 100 MG/ML SYRINGE 85 MG SUB-Q (21:07)
[2022-04-19] VITALS (8 sets, daily range): BP systolic 100–166; BP diastolic 59–92; PULSE 83–133; RESP 16–18; TEMP 35.7–37; O2SAT 96–97
[2022-04-19 06:13] LABS: Basophils Absolute Auto 0.1 K/mm3 (0.0-0.1); Basophils Percent Auto 0.9 % (0.2-1.2); Eosinophils Absolute Auto 0.3 K/mm3 (0-0.3); Eosinophils Percent Auto 2.7 % (0-4.4); Hemoglobin 13.2 g/dL (14.0-18.0); Immature Granulocyte Absolute 0.29 K/mm3 (0.00-0.031); Immature Granulocyte Percent A 2.5 % (0-0.5); Lymphocytes Absolute Auto 1.48 K/mm3 (0.9-3.2); Lymphocytes Percent Auto 12.8 % (18.3-44.2); Mean Corpuscular HGB Conc 32.2 g/dl (32-36); Mean Corpuscular Hemoglobin 30.9 pg (26-34); Mean Platelet Volume 10.5 fl (7.4-10.4); Monocytes Absolute Auto 1.2 K/mm3 (0.1-0.6); Monocytes Percent Auto 10.1 % (2.6-8.5); Neutrophils Absolute Auto 8.2 K/mm3 (1.3-6.7); Platelet Count Result 220 k/mm3 (150-375); Red Blood Count 4.27 M/mm3 (4.6-6.20); White Blood Count 11.6 K/mm3 (4.5-10.0)
[2022-04-19 06:34] LABS: Albumin Level 3.9 g/dL (3.5-5.1); Anion Gap 3 mmol/L (8-16); Blood Urea Nitrogen 30 mg/dL (9-20); Calcium 9.1 mg/dL (8.4-10.2); Carbon Dioxide 28 mmol/L (22-30); Chloride 104 mmol/L (98-107); Estimated CRCL calculation 29 ml/min; Estimated Glomerular Filt Rate 31; Glucose 95 mg/dL (65-110); Magnesium 1.6 mg/dL (1.6-2.3); Phosphorus 4.1 mg/dL (2.5-4.5); Potassium 5.1 mmol/L (3.4-5.0); Sodium 135 mmol/L (137-145)
[2022-04-19] MEDS: TAMSULOSIN HCL 0.4 MG CAPSULE PO (09:06)
[2022-04-19] MEDS: PANTOPRAZOLE 40 MG TABLET PO (09:06)
[2022-04-19] MEDS: DOCUSATE SODIUM 100 MG CAPSULE PO ×2 (09:06→20:45)
[2022-04-19] MEDS: OPTI-GEN TAB 1 TABLET PO (09:06)
[2022-04-19] MEDS: ASPIRIN 81 MG ENTERIC TABLET PO (09:06)
[2022-04-19] MEDS: amLODIPine BESYLATE 5 MG TABLET PO (09:06)
--- NOTE | 2022-04-19 11:32 | PM.PNNEP ---
Progress Note: A&P Additional Plan 1. the patient has acute kidney injury. This is on top of normal creatinine. He has prostatic obstruction. This is been relieved with a Son catheter and his creatinine is improving. His potassium Is slightly high. Follow this. His bicarbonate level is now 28. Patient does have chronic hypertension but his baseline creatinine is normal so I do not think this has anything to do with his elevated creatinine. 2. The patient has a very high PSA and appearance of bony Mets on his imaging. Dr. Jessica is on the case. 3. The patient has hypertension. He has never had a heart attack or stroke. Amlodipine has been started to control his blood pressure. 4. the patient has a positive Cologuard. He will be getting a colonoscopy at some point. 5. Subjective Date/time seen: 04/19/22 11:32 Interval history: Patient feels better today. He is coughing up some phlegm because I have not been smoking my pot . No shortness of breath. No chest pain. Review of Systems Cardiovascular: Cardiovascular: Reports no additional cardiovascular complaints Respiratory: Respiratory: Reports no additional respiratory complaints Gastrointestinal: Gastrointestinal: Reports no additional gastrointestinal complaints Genitourinary: Genitourinary: Reports no additional male genitourinary complaints Exam Narrative: WDWN in NAD skin no rash head ncat lungs clear cor reg no rub abd BS+ nontender and soft ext no edema. Objective Data Vital Signs Vital Signs: Vital Signs - 24 hr 04/18/22 15:00 04/18/22 15:05 04/18/22 15:10 Temperature 36.9 C Pulse Rate 106 H 107 H 124 H Respiratory Rate 16 Blood Pressure 141/90 H 152/100 H 161/91 H Pulse Oximetry 97 93 95 04/18/22 18:44 04/18/22 20:00 04/18/22 22:00 Temperature Pulse Rate 104 H 96 Respiratory Rate 20 Blood Pressure 146/99 H 146/99 H Pulse Oximetry 96 04/19/22 06:00 Temperature 37.0 C Pulse Rate 102 H Respiratory Rate 16 Blood Pressure 152/91 H Pulse Oximetry 97 Intake/Output Intake/Output: Intake & Output 04/16/22 04/17/22 04/18/22 04/19/22 23:59 23:59 23:59 23:59 Intake Total 290 2920 240 Output Total 9220 0800 1500 Balance -4370 -4680 -1260 Meds/Results Medications: Active Medications Generic Name Dose Route Start Last Admin Trade Name Freq PRN Reason Stop Dose Admin Amlodipine Besylate 5 mg 04/17/22 17:30 04/19/22 09:06 Amlodipine Besylate 5 Mg Tablet PO 5 mg QAM VANCE Administration Aspirin 81 mg 04/18/22 09:00 04/19/22 09:06 Aspirin 81 Mg Enteric Tablet PO 81 mg DAILY VANCE Administration Docusate Sodium 100 mg 04/18/22 13:00 04/19/22 09:06 Docusate Sodium 100 Mg Capsule PO 100 mg Q12HR VANCE Administration Enoxaparin Sodium 30 mg 04/19/22 21:00 Enoxaparin 30 Mg/0.3 Ml Syringe SUB-Q Q24H VANCE Ceftriaxone Sodium/Dextrose 1 gm in 50 mls @ 100 mls/hr 04/18/22 15:00 04/18/22 16:50 Rocephin 1 Gm/D5w 50 Ml IVPB Infused Q24H VANCE Infusion Multivitamins/Minerals 1 tablet 04/18/22 09:00 04/19/22 09:06 Opti-Gen Tab PO 1 tablet DAILY VANCE Administration Pantoprazole Sodium 40 mg 04/18/22 09:00 04/19/22 09:06 Pantoprazole 40 Mg Tablet PO 40 mg QAM [facility] Administration Perflutren Lipid Microsphere 0 ml 04/17/22 17:23 Perflutren Lipid Microspheres 1.5 Ml Vial Diluted To 10 Ml Total Volume IV PUSH ONCE PRN adequate visualization Protocol Tamsulosin HCl 0.4 mg 04/18/22 09:00 04/19/22 09:06 Tamsulosin Hcl 0.4 Mg Capsule PO 0.4 mg QAM VANCE Administration Tramadol HCl 50 mg 04/17/22 17:27 04/18/22 21:07 Tramadol Hcl (*Crx) 50 Mg Tablet PO 50 mg Q6H PRN Administration PAIN RATED 4-6 [place] 1 pad 04/18/22 12:56 Witch Kate 40 Pads TOPICAL PRN PRN Perineal Discomfort Radiology Results: ITS Impressions Abdomen/Pelvis CT 04/17/22 12:39 IM
--- NOTE | 2022-04-19 13:07 | PM.IMPN ---
Progress Note: A&P Assessment and Plan (1) Acute kidney injury: Code(s): N17.9 - Acute kidney failure, unspecified Status: Acute Assessment and Plan: Cr 4.6 on admission. HILDA related to urinary retention complicated by his home medications (HCTZ and lisinopril). Treated with IV fluids but these have been stopped. Jenny, will continue to hold IV fluids since he has COVID as well. Renal function is improved today with Cr 2.1 but now potassium higher. Continue to hold lisinopril and hydrochlorothiazide. Nephrology following and appreciate their input. Continue to monitor. (2) Urinary retention: Code(s): R33.9 - Retention of urine, unspecified Status: Acute Assessment and Plan: Patient was noted to distended bladder, bilateral hydronephrosis with hydroureter by the CT scan. Son catheter placed and patient put out over 3 L of urine. Urine retention related to BPH and probably prostate cancer. Urology recommended tamsulosin which was started. Plan is to keep Son in for at least 7 to 10 days before a voiding trial can be done in office. Appreciate urology input. (3) Hydroureteronephrosis: Code(s): N13.30 - Unspecified hydronephrosis Status: Acute Assessment and Plan: Related to urinary retention. This should improve now that Son catheter is in place. Repeat imaging continues to show mild bilateral hydronephrosis. (4) Elevated PSA: Onset Date: 06/2021 Code(s): R97.20 - Elevated prostate specific antigen [PSA] Status: Acute Assessment and Plan: Patient has a history of elevated PSA noted in 2019. Patient presents with acute kidney injury from an obstructive process related to BPH and probably prostate cancer. His PSA is now 942. Imaging studies shows widespread bony metastases. Urology was consulted with plans for an outpatient prostate biopsy in the office next Wednesday with Dr. Jessica. They recommend Levaquin 500 mg daily for 7 days prior to the biopsy depending on renal function at discharge. Currently on Rocephin. UCx growing Proteus but only 10-50K colonies. Continue Rocephin with plans to discharge on Levaquin. (5) Pneumonia due to COVID-19 virus: Code(s): U07.1 - COVID-19; J12.82 - Pneumonia due to coronavirus disease 2019 Status: Acute Assessment and Plan: He endorsed mild shortness of breath to the admitting provider but denies SOB or cough now. No indication for dexamethasone or remdesivir at this time. Follow. He was encouraged to have his COVID vaccine when okay with his doctor. (6) Positive colorectal cancer screening using Cologuard test: Onset Date: 06/2021 Code(s): R19.5 - Other fecal abnormalities Status: Acute Assessment and Plan: Cologuard was last fall. He attributes occasional bright red blood per rectum to external hemorrhoids. Patient encouraged to follow-up with gastroenterology for a colonoscopy as an outpatient. Continue Colace and Tucks pads. Add MOM for the constipation. (7) Hypertension: Code(s): I10 - Essential (primary) hypertension Status: Acute Assessment and Plan: Blood pressures were reviewed and they are still running high. Lisinopril and hydrochlorothiazide remain on hold. Amlodipine was started. Will advance Norvasc. (8) Lower extremity edema: Code(s): R60.0 - Localized edema Status: Acute Assessment and Plan: Ultrasound was negative for right leg DVT. Pulmonary embolism considered given his mild shortness of breath, tachycardia, and evidence of malignancy on imaging though he is not hypoxic or tachypneic. HILDA prevents CTA chest and a V/Q scan would be less than ideal given that he has COVID. LLE Doppler also negative for DVT. D-dimer is significantly elevated but probably related to his cancer. He is still mildly tachycardic. Continue therapeutic, renally dosed Lovenox for now. Perfusion lung imaging tomorrow.
--- NOTE | 2022-04-19 14:39 | PCOTNOTE ---
Attempted to see pt. for occupational therapy evaluation. Pt. away from room for testing at this time. Will follow.
[2022-04-19] MEDS: MAGNESIUM HYDROXIDE SUSP 30 ML UDC PO (15:54)
[2022-04-19 16:18] LABS: Potassium 4.7 mmol/L (3.4-5.0)
[2022-04-19] MEDS: ENOXAPARIN 80 MG/0.8 ML SYRINGE 70 MG SUB-Q (20:45)
--- NOTE | 2022-04-19 22:14 | ECG_ITS ---
Measurements Intervals [place] Rate: 116 P: 55 NH: 134 QRS: -23 QRSD: 84 T: 47 QT: 320 QTc: 446 Interpretive Statements SINUS TACHYCARDIA BORDERLINE LEFT AXIS DEVIATION [QRS AXIS < -20] ABNORMAL RHYTHM ECG COMPARED TO ECG 04/17/2022 10:25:37 HEART RATE INCREASED ,NO OTHER CHANGE Electronically Signed On 04-20-2022 13:04:34 CDT by Channing Lott M.D.
[2022-04-20] VITALS (10 sets, daily range): BP systolic 106–145; BP diastolic 74–90; PULSE 98–131; RESP 18; TEMP 36.6–36.7; O2SAT 94–100
[2022-04-20 05:49] LABS: Albumin Level 3.9 g/dL (3.5-5.1); Anion Gap 3 mmol/L (8-16); Blood Urea Nitrogen 25 mg/dL (9-20); Carbon Dioxide 27 mmol/L (22-30); Chloride 101 mmol/L (98-107); Estimated CRCL calculation 35 ml/min; Estimated Glomerular Filt Rate 40; Glucose 103 mg/dL (65-110); Phosphorus 3.6 mg/dL (2.5-4.5); Potassium 4.6 mmol/L (3.4-5.0); Sodium 131 mmol/L (137-145)
[2022-04-20] MEDS: PANTOPRAZOLE 40 MG TABLET PO (08:34)
[2022-04-20] MEDS: MAGNESIUM HYDROXIDE SUSP 30 ML UDC PO (08:34)
[2022-04-20] MEDS: amLODIPine BESYLATE 5 MG TABLET PO (08:34)
[2022-04-20] MEDS: ASPIRIN 81 MG ENTERIC TABLET PO (08:34)
[2022-04-20] MEDS: OPTI-GEN TAB 1 TABLET PO (08:34)
[2022-04-20] MEDS: TAMSULOSIN HCL 0.4 MG CAPSULE PO (08:34)
[2022-04-20] MEDS: DOCUSATE SODIUM 100 MG CAPSULE PO ×2 (08:34→20:24)
--- NOTE | 2022-04-20 08:51 | PM.IMPN ---
Progress Note: A&P Assessment and Plan (1) Acute kidney injury: Code(s): N17.9 - Acute kidney failure, unspecified Status: Acute Assessment and Plan: Cr 4.6 on admission. HILDA related to urinary retention complicated by his home medications (HCTZ and lisinopril). Treated with IV fluids but these have been stopped. Will continue to hold IVF due to COVID. Creatinine down to 1.7 today. -Appreciate recommendations from Nephrology -Continue lei -Avoid nephrotoxic agents -Renally dose medications (2) Urinary retention: Code(s): R33.9 - Retention of urine, unspecified Status: Acute Assessment and Plan: Patient was noted to distended bladder, bilateral hydronephrosis with hydroureter by the CT scan. Lei catheter placed and patient put out over 3 L of urine. Urine retention related to BPH and probably prostate cancer. Urology recommended tamsulosin which was started. Plan is to keep Lei in for at least 7 to 10 days before a voiding trial can be done in office. Appreciate urology input. -Continue lei (3) Hydroureteronephrosis: Code(s): N13.30 - Unspecified hydronephrosis Status: Acute Assessment and Plan: Related to urinary retention. This should improve now that Lei catheter is in place. Repeat imaging continues to show mild bilateral hydronephrosis. (4) Elevated PSA: Onset Date: 06/2021 Code(s): R97.20 - Elevated prostate specific antigen [PSA] Status: Acute Assessment and Plan: Patient has a history of elevated PSA noted in 2019. Patient presents with acute kidney injury from an obstructive process related to BPH and likely prostate cancer. PSA 942. Imaging studies shows widespread bony metastases. Urology was consulted with plans for an outpatient prostate biopsy in the office next Wednesday with Dr. Jessica. They recommend Levaquin 500 mg daily for 7 days prior to the biopsy depending on renal function at discharge. Currently on Rocephin. UCx growing Proteus but only 10-50K colonies. Continue Rocephin with plans to discharge on Levaquin. (5) Pneumonia due to COVID-19 virus: Code(s): U07.1 - COVID-19; J12.82 - Pneumonia due to coronavirus disease 2018 Status: Acute Assessment and Plan: No evidence of hypoxia. No dexamethasone or remdesivir given. Reporting some SOB. Unable to get CTA chest due to HILDA, but creatinine is improving. Will continue to monitor off oxygen for now. (6) Positive colorectal cancer screening using Cologuard test: Onset Date: 06/2021 Code(s): R19.5 - Other fecal abnormalities Status: Acute Assessment and Plan: Cologuard was last fall. He attributes occasional bright red blood per rectum to external hemorrhoids. Patient encouraged to follow-up with gastroenterology for a colonoscopy as an outpatient. Continue Colace and Tucks pads. Add MOM for the constipation. (7) Hypertension: Code(s): I10 - Essential (primary) hypertension Status: Acute Assessment and Plan: Blood pressures were reviewed and they are still running high. Lisinopril and hydrochlorothiazide remain on hold. Amlodipine was started. Will advance Norvas. (8) Lower extremity edema: Code(s): R60.0 - Localized edema Status: Acute Assessment and Plan: Ultrasound was negative for right leg DVT. Pulmonary embolism considered given his mild shortness of breath, tachycardia, and evidence of malignancy on imaging though he is not hypoxic or tachypneic. HILDA prevents CTA chest and a V/Q scan would be less than ideal given that he has COVID. LLE Doppler also negative for DVT. D-dimer is significantly elevated but probably related to his cancer. He is still mildly tachycardic. Continue therapeutic, renally dosed Lovenox for now. Perfusion lung imaging tomorrow. (9) Abnormal urinalysis: Code(s): R82.90 - Unspecified abnormal findings in urine Stat
--- NOTE | 2022-04-20 10:51 | PM.PNNEP ---
Progress Note: A&P Additional Plan 1. the patient has acute kidney injury. This is on top of normal creatinine. He has prostatic obstruction. This is been relieved with a Son catheter and his creatinine is improving. his creatinine is down to 1.7 now. His potassium is back to normal. His bicarbonate level is normal 2. The patient has a very high PSA and appearance of bony Mets on his imaging. Dr. Jessica is on the case. 3. The patient has hypertension. he is on amlodipine . Systolic 133 last check 4. the patient has a positive Cologuard. He will be getting a colonoscopy at some point. Subjective Date/time seen: 04/20/22 10:51 Interval history: Patient feels better today. Just came back from MRI. No chest pain or shortness of breath Exam Narrative: WDWN in NAD skin no rash head ncat lungs clear bilaterally cor reg no rub or gallop abd BS+ nontender and soft ext no edema. Objective Data Vital Signs Vital Signs: Vital Signs - 24 hr 04/19/22 17:45 04/19/22 17:50 04/19/22 17:55 Temperature 35.7 C L Pulse Rate 124 H 83 132 H Respiratory Rate 16 Blood Pressure 109/59 L 166/75 H 112/81 Pulse Oximetry 96 Oxygen Delivery 04/19/22 19:29 04/19/22 19:30 04/19/22 19:32 Temperature 36.4 C Pulse Rate 118 H 132 H 133 H Respiratory Rate 18 Blood Pressure 110/74 149/92 H 100/74 Pulse Oximetry 96 Oxygen Delivery 04/19/22 20:00 04/19/22 22:09 04/20/22 03:03 Temperature Pulse Rate 129 H Respiratory Rate Blood Pressure Pulse Oximetry 94 Oxygen Delivery Room Air Room Air 04/20/22 04:04 04/20/22 09:30 04/20/22 09:31 Temperature 36.6 C Pulse Rate 108 H 118 H 125 H Respiratory Rate 18 Blood Pressure 140/80 145/90 H 133/87 Pulse Oximetry 96 97 98 Oxygen Delivery 04/20/22 09:31 04/20/22 08:00 Temperature Pulse Rate 131 H 98 Respiratory Rate 18 Blood Pressure 106/75 Pulse Oximetry 100 100 Oxygen Delivery Room Air Intake/Output Intake/Output: Intake & Output 04/17/22 04/18/22 04/19/22 04/20/22 23:59 23:59 23:59 23:59 Intake Total 290 2920 770 1610 Output Total 4792 3770 3304 3536 [id number] -6980 -1930 10 Meds/Results Medications: Active Medications Generic Name Dose Route Start Last Admin Trade Name Freq PRN Reason Stop Dose Admin Amlodipine Besylate 5 mg 04/17/22 17:30 04/20/22 08:34 Amlodipine Besylate 5 Mg Tablet PO 5 mg QAM VANCE Administration Aspirin 81 mg 04/18/22 09:00 04/20/22 08:34 Aspirin 81 Mg Enteric Tablet PO 81 mg DAILY VANCE Administration Docusate Sodium 100 mg 04/18/22 13:00 04/20/22 08:34 Docusate Sodium 100 Mg Capsule PO 100 mg Q12HR VANCE Administration Enoxaparin Sodium 70 mg 04/19/22 21:00 04/19/22 20:45 Enoxaparin 80 Mg/0.8 Ml Syringe SUB-Q 70 mg Q24H VANCE Administration Ceftriaxone Sodium/Dextrose 1 gm in 50 mls @ 100 mls/hr 04/18/22 15:00 04/19/22 16:30 Rocephin 1 Gm/D5w 50 Ml IVPB Infused Q24H VANCE Infusion Magnesium Hydroxide 30 ml 04/20/22 09:00 04/20/22 08:34 Magnesium Hydroxide Susp 30 Ml Udc PO 30 ml QAM VANCE Administration Multivitamins/Minerals 1 tablet 04/18/22 09:00 04/20/22 08:34 Opti-Gen Tab PO 1 tablet DAILY VANCE Administration Pantoprazole Sodium 40 mg 04/18/22 09:00 04/20/22 08:34 Pantoprazole 40 Mg Tablet PO 40 mg QAM VANCE Administration Perflutren Lipid Microsphere 0 ml 04/17/22 17:23 Perflutren Lipid Microspheres 1.5 Ml Vial Diluted To 10 Ml Total Volume IV PUSH ONCE PRN adequate visualization Protocol Tamsulosin HCl 0.4 mg 04/18/22 09:00 04/20/22 08:34 Tamsulosin Hcl 0.4 Mg Capsule PO 0.4 mg QAM VANCE Administration Tramadol HCl 50 mg 04/17/22 17:27 04/18/22 21:07 Tramadol Hcl (*Crx) 50 Mg Tablet PO 50 mg Q6H PRN Administration PAIN RATED 4-6 [place] 1 pad 04/18/22 12:56 [place] 40 Pads TOPICAL PRN PRN
--- NOTE | 2022-04-20 12:22 | PCNFU ---
Nutrition Follow-Up Complete: Inadequate oral intake R/T decreased appetite AEB pt report Goal: Pt. to meet >75% of estimated nutritional needs Patient is progressing towards goal. We will continue current goal. Pt current nutrition is Regular with Ensure Compact BID. Last recorded weight is 80.5 kg, down from 84.7 kg. Bowel Motility:No BM reported Labs Reviewed:Glu 40, Cr 1.7,GFR 40, BUN 25, Na 131 Meds Noted:Flomax, Milk of Mag, Ocuvite, Protonix, Norvasc, Colace Skin: WNL Additional Notes: Called patient today due to COVID precautions, he states to eating well. Patient remains on Ensure compact BID providing 220 kcals and 9 gms protein. Agree with diet orders. Will monitor labs, medication, wt, and reported intake every 5 days
--- NOTE | 2022-04-20 12:32 | PC.NURSE ---
Reported pt elevated HR to MD Joseph, MD Joseph aware, NNO, stated possibly from PE or CA.
--- NOTE | 2022-04-20 12:38 | WPDUROPN2 ---
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 Jessica on 04/22/22 at 8am. We discussed the need to get the biopsy for diagnosis of prostate cancer with metastatic disease then start hormone depravation therapy. He was given the pre-procedure instructions at the bedside this morning and informed of how the procedure is done. No further workup while hospitalized, ok to discharge at anytime per urology. (2) Acute UTI: Code(s): N39.0 - Urinary tract infection, site not specified Status: Acute Assessment and Plan: Urine culture grew Proteus. (3) Acute urinary retention: Code(s): R33.8 - Other retention of urine Status: Acute Assessment and Plan: Keep lei catheter in for 7-10 days, continue Flomax and will have a voiding trial next week in the office. Subjective Subjective Date/Time Seen: 04/20/22 12:38 THe patient is stable at this time s/p catheter placement. His creatinine is much improved to 1.70. His FABI shows mild bilateral hydro from 04/18/22, which I suspect has resolved as his creatinine is much better. He has no flank pain or abdominal pain and his urine is draining to gravity. He continues to be tachycardic and is subject to have a Chest CT to rule out a PE as he is high risk d/t cancer and COVID. Review of Systems Cardiovascular: Cardiovascular: Denies chest pain Respiratory: Respiratory: Reports no additional respiratory complaints Gastrointestinal: Gastrointestinal: Reports abdominal pain, Denies nausea and Denies vomiting Genitourinary: Genitourinary: Denies hematuria and Denies flank pain Exam Const: General: comfortable Resp: Effort & Inspection: normal respiratory effort Cardio: Rate: tachycardic GI: GI Palp: Yes Soft to palpation and No Tenderness to palpation present (GI) : General: Yes no CVA tenderness Urinary Catheter: Urinary Catheter: patent and draining and urine clear Extrem: Right lower extremity: edema Left lower extremity: edema Objective Data Vital Signs Vital Signs: Vital Signs - 24 hr 04/19/22 17:45 04/19/22 17:50 04/19/22 17:55 Temperature 96.2 F L Pulse Rate 124 H 83 132 H Respiratory Rate 16 Blood Pressure 109/59 L 166/75 H 112/81 Pulse Oximetry 96 Oxygen Delivery 04/19/22 19:29 04/19/22 19:30 04/19/22 19:32 Temperature 97.6 F Pulse Rate 118 H 132 H 133 H Respiratory Rate 18 Blood Pressure 110/74 149/92 H 100/74 Pulse Oximetry 96 Oxygen Delivery 04/19/22 20:00 04/19/22 22:09 04/20/22 03:03 Temperature Pulse Rate 129 H Respiratory Rate Blood Pressure Pulse Oximetry 94 Oxygen Delivery Room Air Room Air 04/20/22 04:04 04/20/22 09:30 04/20/22 09:31 Temperature 97.8 F Pulse Rate 108 H 118 H 125 H Respiratory Rate 18 Blood Pressure 140/80 145/90 H 133/87 Pulse Oximetry 96 97 98 Oxygen Delivery 04/20/22 09:31 04/20/22 08:00 04/20/22 12:00 Temperature Pulse Rate 131 H 98 122 H Respiratory Rate 18 Blood Pressure 106/75 Pulse Oximetry 100 100 Oxygen Delivery Room Air Intake/Output Intake/Output: Intake & Output 04/17/22 04/18/22 04/19/22 04/20/22 23:59 23:59 23:59 23:59 Intake Total 290 2920 770 2090 Output Total 4660 7600 2700 1900 Balance -4370 -4680 -1930 190 Meds/Results Medications: Active Medications Generic Name Dose Route Start Last Admin Trade Name Freq PRN Reason Stop Dose Admin Amlodipine Besylate 5 mg 04/17/22 17:30 04/20/22 08:34 Amlodipine Besylate 5 Mg Tablet PO 5 mg QAM [facility] Administration Aspirin 81 mg 04/18/22 09:00 04/20/22 08:34 Aspirin 81 Mg Enteric Tablet PO 81 mg DAILY VANCE Administration Docusate Sodium 100 mg 04/18/22 13:00 04/20/22 08:34 Docusate Sodium 100 Mg Capsule PO 100 mg Q12HR [facility]
[2022-04-20] MEDS: traMADol HCL (*CRX) 50 MG TABLET PO ×2 (14:09→20:24)
[2022-04-20] MEDS: ENOXAPARIN 80 MG/0.8 ML SYRINGE 70 MG SUB-Q (20:24)
[2022-04-21 04:25] VITALS: BP 131/78; PULSE 107; RESP 20; TEMP 36.8; O2SAT 95
[2022-04-21 05:52] LABS: Albumin Level 3.9 g/dL (3.5-5.1); Anion Gap 4 mmol/L (8-16); Blood Urea Nitrogen 26 mg/dL (9-20); Calcium 8.7 mg/dL (8.4-10.2); Carbon Dioxide 27 mmol/L (22-30); Chloride 98 mmol/L (98-107); Estimated CRCL calculation 42 ml/min; Estimated Glomerular Filt Rate 50; Glucose 102 mg/dL (65-110); Phosphorus 3.4 mg/dL (2.5-4.5); Potassium 4.5 mmol/L (3.4-5.0); Sodium 129 mmol/L (137-145)
[2022-04-21 08:00] VITALS: PULSE 107; RESP 20; O2SAT 95
[2022-04-21] MEDS: traMADol HCL (*CRX) 50 MG TABLET PO ×2 (08:14→18:16)
[2022-04-21] MEDS: DOCUSATE SODIUM 100 MG CAPSULE PO (08:15)
[2022-04-21] MEDS: ASPIRIN 81 MG ENTERIC TABLET PO (08:15)
[2022-04-21] MEDS: PANTOPRAZOLE 40 MG TABLET PO (08:15)
[2022-04-21] MEDS: amLODIPine BESYLATE 5 MG TABLET PO (08:16)
[2022-04-21] MEDS: OPTI-GEN TAB 1 TABLET PO (08:16)
[2022-04-21] MEDS: MAGNESIUM HYDROXIDE SUSP 30 ML UDC PO (08:16)
[2022-04-21] MEDS: TAMSULOSIN HCL 0.4 MG CAPSULE PO (08:16)
[2022-04-21 13:41] VITALS: BP 136/78; PULSE 111; RESP 18; TEMP 35.8; O2SAT 95
[2022-04-21 13:42] VITALS: BP 128/81; BP 136/78
[2022-04-21 13:43] VITALS: BP 123/75
[2022-04-21] MEDS: BISACODYL 10 MG SUPPOSITORY RECTAL (14:53)
--- NOTE | 2022-04-21 15:54 | WPDUROPN2 ---
Progress Note: A&P Assessment and Plan (1) UTI (urinary tract infection): Code(s): N39.0 - Urinary tract infection, site not specified Status: Acute Assessment and Plan: Culture grew Pseudomonas, continue IV antibiotics, discharge with appropriate course of oral antibiotics. (2) BPH (benign prostatic hyperplasia): Code(s): N40.0 - Benign prostatic hyperplasia without lower urinary tract symptoms Status: Acute Assessment and Plan: Keep lei in place for 7-10 days we will then do a voiding trial in the office. (3) Bony metastasis: Code(s): C79.51 - Secondary malignant neoplasm of bone Status: Acute (4) Elevated PSA: Onset Date: 06/2021 Code(s): R97.20 - Elevated prostate specific antigen [PSA] Status: Acute Assessment and Plan: He is scheduled tomorrow at 8am for a prostate biopsy with Dr. Jessica. We discussed his pre-procedural instructions and he will not start Eliquis until after his biopsy. He will also hold Lovenox and ASA. (5) Acute kidney injury: Code(s): N17.9 - Acute kidney failure, unspecified Status: Acute Assessment and Plan: Improved s/p cath placement to 1.40. Subjective Subjective Date/Time Seen: 04/21/22 15:54 The patient is doing well today, his urine has gone from estella colored urine to a light red/pink. He denies pulling at his lei, it is draining well and there are no clots present. Review of Systems Cardiovascular: Cardiovascular: Denies chest pain Respiratory: Respiratory: Reports no additional respiratory complaints Gastrointestinal: Gastrointestinal: Denies abdominal pain, Denies nausea and Denies vomiting Genitourinary: Genitourinary: Reports hematuria Exam Const: General: comfortable Resp: Effort & Inspection: normal respiratory effort Cardio: Rate: tachycardic GI: GI Palp: Yes Soft to palpation and No Tenderness to palpation present (GI) : General: Yes no CVA tenderness Urinary Catheter: Urinary Catheter: patent and draining, urine pink and urine red Objective Data Vital Signs Vital Signs: Vital Signs - 24 hr 04/20/22 19:35 04/20/22 19:40 04/20/22 19:41 Temperature 98 F Pulse Rate 116 H 125 H 122 H Respiratory Rate 18 Blood Pressure 139/83 123/76 126/74 Pulse Oximetry 95 Oxygen Delivery 04/20/22 20:00 04/21/22 04:25 04/21/22 08:00 Temperature 98.3 F Pulse Rate 107 H 107 H Respiratory Rate 20 20 Blood Pressure 131/78 Pulse Oximetry 95 95 Oxygen Delivery Room Air Room Air 04/21/22 13:41 04/21/22 13:42 04/21/22 13:42 Temperature 96.4 F L Pulse Rate 111 H Respiratory Rate 18 Blood Pressure 136/78 136/78 128/81 Pulse Oximetry 95 Oxygen Delivery 04/21/22 13:43 Temperature Pulse Rate Respiratory Rate Blood Pressure 123/75 Pulse Oximetry Oxygen Delivery Intake/Output Intake/Output: Intake & Output 04/18/22 04/19/22 04/20/22 04/21/22 23:59 23:59 23:59 23:59 Intake Total 2920 770 3330 360 Output Total 7600 2700 2500 1900 Balance -4680 -1930 830 -1540 Meds/Results Medications: Active Medications Generic Name Dose Route Start Last Admin Trade Name Arthurq PRN Reason Stop Dose Admin Amlodipine Besylate 5 mg 04/17/22 17:30 04/21/22 08:16 Amlodipine Besylate 5 Mg Tablet PO 5 mg QAM VANCE Administration Apixaban 5 mg 04/29/22 09:00 Apixaban 5 Mg Tablet PO Q12HR [facility] Apixaban 10 mg 04/21/22 21:00 Apixaban 5 Mg Tablet PO 04/28/22 09:01 Q12HR VANCE Aspirin 81 mg 04/18/22 09:00 04/21/22 08:15 Aspirin 81 Mg Enteric Tablet PO 81 mg DAILY VANCE Administration Docusate Sodium 100 mg 04/18/22 13:00 04/21/22 08:15 Docusate Sodium 100 Mg Capsule PO 100 mg Q12HR VANCE Administration Ceftriaxone Sodium/Dextrose 1 gm in 50 mls @ 100 mls/hr 04/18/22 15:00 04/21/22 14:53 Rocephin 1 Gm/D5w 50 Ml IVPB 100 mls/hr Q24H VANCE Administration Magnesium Hydroxide
--- NOTE | 2022-04-21 16:29 | PM.DS ---
DS: Admitting Diagnosis Discharge Date 04/21/22 Admitting Diagnosis Acute Renal Failure DS: Discharge Diagnosis Discharge Diagnosis (1) Acute kidney injury: Code(s): N17.9 - Acute kidney failure, unspecified Status: Acute Assessment and Plan: Cr 4.6 on admission. HILDA related to urinary retention complicated by his home medications (HCTZ and lisinopril). Treated with IV fluids but these have been stopped. Will continue to hold IVF due to COVID. Creatinine down to 1.4 today. -Appreciate recommendations from Nephrology -Continue lei -Avoid nephrotoxic agents -Renally dose medications (2) Urinary retention: Code(s): R33.9 - Retention of urine, unspecified Status: Acute Assessment and Plan: Patient was noted to distended bladder, bilateral hydronephrosis with hydroureter by the CT scan. Lei catheter placed and patient put out over 3 L of urine. Urine retention related to BPH and probably prostate cancer. Urology recommended tamsulosin which was started. Plan is to keep Lei in for at least 7 to 10 days before a voiding trial can be done in office. Appreciate urology input. -Continue lei (3) Hydroureteronephrosis: Code(s): N13.30 - Unspecified hydronephrosis Status: Acute Assessment and Plan: Related to urinary retention. This should improve now that Lei catheter is in place. Repeat imaging continues to show mild bilateral hydronephrosis. (4) Elevated PSA: Onset Date: 06/2021 Code(s): R97.20 - Elevated prostate specific antigen [PSA] Status: Acute Assessment and Plan: Patient has a history of elevated PSA noted in 2019. Patient presents with acute kidney injury from an obstructive process related to BPH and likely prostate cancer. PSA 942. Imaging studies shows widespread bony metastases. Urology was consulted with plans for an outpatient prostate biopsy in the office next Wednesday with Dr. Jessica. They recommend Levaquin 500 mg daily for 7 days prior to the biopsy depending on renal function at discharge. Currently on Rocephin. UCx growing Proteus but only 10-50K colonies. Continue Rocephin with plans to discharge on Levaquin. (5) Pneumonia due to COVID-19 virus: Code(s): U07.1 - COVID-19; J12.82 - Pneumonia due to coronavirus disease 2019 Status: Acute Assessment and Plan: No evidence of hypoxia. No dexamethasone or remdesivir given. Reporting some SOB. Unable to get CTA chest due to HILDA, but creatinine is improving. Patient asymptomatic. Patient sputum culture growing pseudomonas, which should be adequately covered by levofloxacin. -Will discharge to home with levofloxacin to complete treatment 04/27/22 -Advised patient to follow up with PCP by Wednesday04/27/22 (6) Positive colorectal cancer screening using Cologuard test: Onset Date: 06/2021 Code(s): R19.5 - Other fecal abnormalities Status: Acute Assessment and Plan: Cologuard was last fall. He attributes occasional bright red blood per rectum to external hemorrhoids. Patient encouraged to follow-up with gastroenterology for a colonoscopy as an outpatient. Continue Colace and Tucks pads. Add MOM for the constipation. (7) Hypertension: Code(s): I10 - Essential (primary) hypertension Status: Acute Assessment and Plan: Blood pressures were reviewed and they are still running high. Lisinopril and hydrochlorothiazide remain on hold. Amlodipine was started. Discharged patient with amlodipine to take while renal function recovers. Held lisinopril and hydrochlorothiazide for discharge. Patient will need repeat BMP outpatient by PCP prior to restarting lisinopril and hydrochlorothiazide. (8) Lower extremity edema: Code(s): R60.0 - Localized edema Status: Acute Assessment and Plan: Ultrasound was negative for right leg DVT. Pulmonary embolism considered given his mild shortness of
== END 2022-04-21 18:40 | disposition home or self-care (01) | DRG 682 ==
LOC: ANHED 12:03 → ANH3MED 14:40
PROVIDERS: Internal Medicine; Internal Medicine Nephrology; Physician Assistant; Admitting Provider Internal Medicine; Emergency Provider Emergency Medicine; PCP Internal Medicine; Visit Provider Family Medicine
DX: N17.9 Acute kidney failure, unspecified (principal); U07.1 COVID-19; J12.82 Pneumonia due to coronavirus disease 2019; C79.51 Secondary malignant neoplasm of bone; N39.0 Urinary tract infection, site not specified; N13.39 Other hydronephrosis; R97.20 Elevated prostate specific antigen [PSA]; R91.8 Other nonspecific abnormal finding of lung field; N40.1 Benign prostatic hyperplasia with lower urinary tract symptoms; R33.8 Other retention of urine; T50.2X5A Adverse effect of carbonic-anhydrase inhibitors, benzothiadiazides and other diuretics, initial encounter; T46.4X5A Adverse effect of angiotensin-converting-enzyme inhibitors, initial encounter; B96.4 Proteus (mirabilis) (morganii) as the cause of diseases classified elsewhere; B96.5 Pseudomonas (aeruginosa) (mallei) (pseudomallei) as the cause of diseases classified elsewhere; R00.0 Tachycardia, unspecified; K64.4 Residual hemorrhoidal skin tags; Z87.891 Personal history of nicotine dependence
CPT/HCPCS: 36415; 71045; 71046; 72148; 73521; 74176; 76775; 77075; 78580; 80053; 80069; 81001; 83605; 83735; 83880; 84100; 84132; 84145; 84153; 85025; 85380; 85610; 85730; 86140; 87040; 87070; 87077; 87086; 87088; 87186; 87205; 93005; 93306; 93971; 96361; 96365; 96366; 96372; 97110; 97161; 97165; 97530; 99285; A9270; A9540; C9803; G0378; J0696; J1650; J7030; U0003; U0005

== ENCOUNTER 2022-04-28 10:23 | Outpatient (CLI) | payer OTHER, SELFPAY ==
[2022-04-28 11:27] LABS: Alanine Aminotransferase 20 U/L (6-50); Albumin Level 4.3 g/dL (3.5-5.1); Alkaline Phosphatase 542 U/L (38-126); Anion Gap 10 mmol/L (8-16); Aspartate Amino Transferase 38 U/L (17-59); Bilirubin,Total 0.6 mg/dL (0.2-1.3); Blood Urea Nitrogen 61 mg/dL (9-20); Calcium 9.1 mg/dL (8.4-10.2); Carbon Dioxide 24 mmol/L (22-30); Chloride 95 mmol/L (98-107); Estimated Glomerular Filt Rate 37; Glucose 136 mg/dL (65-110); Sodium 129 mmol/L (137-145)
== END 2022-04-28 10:24 | disposition home or self-care (01) ==
LOC: ANHLAB 10:27
PROVIDERS: PCP Internal Medicine; Visit Provider Internal Medicine
DX: N17.9 Acute kidney failure, unspecified (principal)
CPT/HCPCS: 36415; 80053

== ENCOUNTER 2022-04-30 03:27 | Emergency (ER) | payer OTHER, SELFPAY ==
[2022-04-30 03:29] VITALS: BP 108/66; PULSE 117; RESP 18; TEMP 36.6; O2SAT 97
--- NOTE | 2022-04-30 03:46 | ED.GENADULT ---
HPI - General Adult General Chief complaint: Urogenital-Male Stated complaint: urinary retention Time Seen by Provider: 04/30/22 03:36 History of Present Illness HPI narrative: 71-year-old male presenting to the emergency department for evaluation of urinary retention. Patient does have a history of urine retention and just had his Son catheter removed today. Patient was told if he was not urinating by a certain time he needed present to the emergency department for evaluation. Patient denies any abdominal pain. Patient have pain secondary to his prostate cancer which has metastasized to bone. Related Data Home Medications Medication Instructions Recorded Confirmed phhidhyu-mco-vufpi acid 300 1 tablet PO DAILY 05/27/21 04/27/22 mcg-lycopene 600 mcg-lutein 300 mcg tablet (Centrum Silver Men) omeprazole magnesium 20 mg 20 mg PO DAILY 05/27/21 04/27/22 tablet,delayed release (Prilosec OTC) aspirin 81 mg tablet,delayed 81 mg PO DAILY 06/02/21 04/27/22 release (Adult Aspirin Regimen) Allergies Allergy/AdvReac Type Severity Reaction Status Date / Time No Known Allergies Allergy Verified 04/27/22 11:42 Review of Systems Review of Systems: CONSTITUTIONAL: Denies fever, chills, or sweats. EYES: Denies visual changes, redness, or discharge. ENT: Denies rhinorrhea, congestion, sore throat, or otalgia. GASTROINTESTINAL: Denies abdominal pain, nausea, vomiting, or diarrhea. GENITOURINARY: Decreased urination SKIN: Denies rash or itching. MUSCULOSKELETAL: Chronic pain NEUROLOGIC: Denies headache, numbness, or weakness. [facility] Past Medical History Medical History Elevated PSA (06/2021) Hypertension Positive colorectal cancer screening using Cologuard test (06/2021) Has yet to have a colonoscopy as of April 2022. Surgical History Surgical History History of cardiac catheterization History of left inguinal hernia repair (07/05/15) History of right inguinal hernia repair (01/25/19) Family History Family History Mother Family history of liver disease Sibling Family history of malignant neoplasm Father Family history of kidney disease Other Family history of cardiovascular disease Hypertension Social History Social History Social History: Surrogate decision maker: More Gli, sister. Code status: Full code. Smoking packs per day: 1 Smoking cigarettes per day: 20.0 Years smoked: 20 Smoking pack-years: 20.00 Smoking status: Former smoker Second hand tobacco smoke exposure: Yes Alcohol intake: never Substance use: current Substance use type: marijuana Spiritual care concerns: No Exam Narrative: APPEARANCE: Well appearing, no pain, no distress, well-nourished. HEAD: normocephalic, atraumatic. EYES: PERRLA/EOMI, conjunctivae clear. NOSE: Normal no drainage NECK: Supple. No adenopathy, no masses. RESPIRATORY: Airway patent, respirations nonlabored. Clear to auscultation bilaterally, no rales, rhonchi, wheezing. CARDIOVASCULAR: Regular rate and rhythm without murmurs rubs or gallops. ABDOMINAL: Soft, mild suprapubic tenderness to palpation. MUSCULOSKELETAL: Moves all extremities. Strength/ROM intact, No edema, No calf tenderness. NEURO: Alert. Cranial nerves II through XII intact. Grossly intact SKIN: Warm, dry. Normal Color Course Course Emergency Course: Patient's bladder scan showed greater than 870 mL of retained urine. Son catheter will be replaced. Son catheter was placed and patient had significant output. Patient is requesting discharge to home. Patient was encouraged to have close follow-up with his urologist. Vital Signs Vital signs: Vital Signs Temperature 98 F 04/30/22 03:29 Pulse Rate 117 H 04/30/22 03:29 Respiratory Ra
== END 2022-04-30 05:15 | disposition home or self-care (01) ==
PROVIDERS: Emergency Provider Emergency Medicine; PCP Internal Medicine
DX: R33.9 Retention of urine, unspecified (principal); I10 Essential (primary) hypertension; Z79.82 Long term (current) use of aspirin; Z87.891 Personal history of nicotine dependence
CPT/HCPCS: 51702; 99283

== ENCOUNTER 2022-05-02 19:35 | Emergency (ER) | payer OTHER, SELFPAY ==
[2022-05-02 19:36] VITALS: BP 94/71; PULSE 109; RESP 16; TEMP 36.2; O2SAT 98
[2022-05-02] MEDS: SODIUM CHLORIDE 0.9% IV 500 ML 999 ML IV CONT (20:13)
[2022-05-02 20:39] LABS: Basophils Absolute Auto 0.2 K/mm3 (0.0-0.1); Basophils Percent Auto 1.5 % (0.2-1.2); Eosinophils Absolute Auto 0.2 K/mm3 (0-0.3); Eosinophils Percent Auto 1.7 % (0-4.4); Hematocrit 40.8 % (42.0-52.0); Hemoglobin 14.1 g/dL (14.0-18.0); Lymphocytes Absolute Auto 1.67 K/mm3 (0.9-3.2); Lymphocytes Percent Auto 13.8 % (18.3-44.2); Mean Corpuscular HGB Conc 34.6 g/dl (32-36); Mean Corpuscular Hemoglobin 31.6 pg (26-34); Mean Corpuscular Volume 91.5 fl (80-100); Mean Platelet Volume 9.6 fl (7.4-10.4); Monocytes Absolute Auto 1.4 K/mm3 (0.1-0.6); Monocytes Percent Auto 11.9 % (2.6-8.5); Neutrophils Percent Auto 66.1 % (45.5-73.1); Platelet Count Result 267 k/mm3 (150-375); Red Blood Count 4.46 M/mm3 (4.6-6.20); Red Cell Distribution Width 12.8 % (11.5-14.5); White Blood Count 12.1 K/mm3 (4.5-10.0)
[2022-05-02 20:47] LABS: Alanine Aminotransferase 15 U/L (6-50); Albumin Level 3.9 g/dL (3.5-5.1); Alkaline Phosphatase 554 U/L (38-126); Anion Gap 4 mmol/L (8-16); Aspartate Amino Transferase 42 U/L (17-59); Bilirubin,Total 0.6 mg/dL (0.2-1.3); Blood Urea Nitrogen 44 mg/dL (9-20); Calcium 9.1 mg/dL (8.4-10.2); Carbon Dioxide 31 mmol/L (22-30); Chloride 93 mmol/L (98-107); Estimated CRCL calculation 53 ml/min; Estimated Glomerular Filt Rate > 60; Glucose 110 mg/dL (65-110); Potassium 5.1 mmol/L (3.4-5.0); Sodium 128 mmol/L (137-145)
[2022-05-02 20:50] LABS: INR 1.3; Prothrombin Time 15.5 Seconds (11.1-14.7)
[2022-05-02 20:51] LABS: Partial Thromboplastin Time 34.5 SECONDS (22.3-36.8)
--- NOTE | 2022-05-02 21:04 | ED.GIBLEED ---
HPI - GI Bleed General Chief complaint: GI Bleed Stated complaint: Rectal bleed Time Seen by Provider: 05/02/22 19:37 Source: patient History of Present Illness HPI Narrative: Patient presents with concerns for soft stools and blood in his stool. Reports he was recently hospitalized and has been doing well since then however today his stool seemed a little bit more bloody his family is concerned he was referred to the ER for evaluation. Patient reports he has hemorrhoids and always has a small amount of blood in his stool and did not think much of it but his family wanted him to be evaluated. Patient reports that his usual state of health. Patient also reports pain around his rectum ports he has had soft diarrhea and blood been wiping his bottom frequently and thinks this is just due to irritation Related Data Home Medications Medication Instructions Recorded Confirmed vxyvqqyx-pod-icplm acid 300 1 tablet PO DAILY 05/27/21 04/27/22 mcg-lycopene 600 mcg-lutein 300 mcg tablet (Centrum Silver Men) omeprazole magnesium 20 mg 20 mg PO DAILY 05/27/21 04/27/22 tablet,delayed release (Prilosec OTC) aspirin 81 mg tablet,delayed 81 mg PO DAILY 06/02/21 04/27/22 release (Adult Aspirin Regimen) Allergies Allergy/AdvReac Type Severity Reaction Status Date / Time No Known Allergies Allergy Verified 04/27/22 11:42 Review of Systems Review of Systems: CONSTITUTIONAL: Denies fever, chills, or sweats. EYES: Denies visual changes, redness, or discharge. ENT: Denies rhinorrhea, congestion, sore throat, or otalgia. CARDIOVASCULAR: Denies chest pain, palpitations, or edema. RESPIRATORY: Denies cough or dyspnea. GASTROINTESTINAL: Denies abdominal pain, nausea, vomiting, or diarrhea. GENITOURINARY: Denies dysuria or hematuria. SKIN: Denies rash or itching. MUSCULOSKELETAL: Denies back pain, joint pain, or myalgia. NEUROLOGIC: Denies headache, numbness, dizziness, or weakness. PSYCHIATRIC: Denies anxiety or depression. All systems reviewed & are unremarkable except as noted in HPI and below PMFSH Past Medical History Medical History Elevated PSA (06/2021) Hypertension Positive colorectal cancer screening using Cologuard test (06/2021) Has yet to have a colonoscopy as of April 2022. Surgical History Surgical History History of cardiac catheterization History of left inguinal hernia repair (07/05/15) History of right inguinal hernia repair (01/25/19) Family History Family History Mother Family history of liver disease Sibling Family history of malignant neoplasm Father Family history of kidney disease Other Family history of cardiovascular disease Hypertension Social History Social History Social History: Surrogate decision maker: More Gil, sister. Code status: Full code. Smoking packs per day: 1 Smoking cigarettes per day: 20.0 Years smoked: 20 Smoking pack-years: 20.00 Smoking status: Former smoker Second hand tobacco smoke exposure: Yes Alcohol intake: never Substance use: current Substance use type: marijuana Spiritual care concerns: No Exam Narrative: GENERAL: Well-appearing, well-nourished, and in no acute distress. HEAD: Normocephalic, atraumatic. EYES: PERRLA and EOMI. ENT: Nares clear, no rhinorrhea or epistaxis. Mucous membranes moist. NECK: Supple. No masses. No JVD CHEST: Clear to auscultation. No respiratory distress. No wheezes rales or rhonchi HEART: Regular rate and rhythm. No murmur heard. Normal peripheral pulses. ABDOMEN: Soft, nontender, nondistended, normal active bowel sounds. RECTAL: Nurse Rafa chaperoned exam. Patient had a large amount of stool around his rectum was brown no blood or melena appreciated. Stool was clear there
[2022-05-02 21:57] VITALS: BP 123/71; PULSE 106; RESP 22; O2SAT 98
== END 2022-05-02 21:58 | disposition home or self-care (01) ==
PROVIDERS: Emergency Provider Emergency Medicine; PCP Internal Medicine
DX: R19.7 Diarrhea, unspecified (principal); L98.8 Other specified disorders of the skin and subcutaneous tissue; I10 Essential (primary) hypertension; Z79.82 Long term (current) use of aspirin; Z87.891 Personal history of nicotine dependence
CPT/HCPCS: 36415; 80053; 85025; 85610; 85730; 96360; 96361; 99283; J7040

== ENCOUNTER 2022-05-05 08:54 | Inpatient (IN) | payer OTHER, SELFPAY ==
--- NOTE | ~2022-05-05 | XR_ITS ---
EXAMINATION: XR chest 1V portable INDICATION: Leukocytosis TECHNIQUE: Portable AP chest at 0810 hours COMPARISON: 05/05/2022 FINDINGS: There are minimal airspace opacities of the lung bases. No pleural effusion or pneumothorax . The cardiomediastinal silhouette is normal. Multiple dilated loops of bowel are seen in the partial ly visualized upper abdomen. IMPRESSION: 1. Minimal airspace opacities of the lung bases, consistent with resolving pneumonia. 2. Multiple dilated bowel loops of the visualized upper abdomen, consistent with bowel obstruction. Reviewed, dictated and finalized at location B. IMPRESSION: 1. Minimal airspace opacities of the lung bases, consistent with resolving pneu monia. 2. Multiple dilated bowel loops of the visualized upper abdomen, consistent wit h bowel obstruction.
--- NOTE | ~2022-05-05 | XR_ITS ---
EXAMINATION: XR abdomen/kub 1V INDICATION: Small bowel obstruction TECHNIQUE: Supine view of the abdomen is obtained. COMPARISON: 05/07/2022 FINDINGS: A nasogastric tube is in the stomach. Contrast from water-soluble enema performed yesterday partially opacifies the large bowel. There has been interval decrease in distention of small bowel l oops in the abdomen was most bowel loops now normal in caliber. Widespread osseous metastases are aga in noted. IMPRESSION: 1. Decrease in large and small bowel distention, consistent with resolving obstruction versus ileus. Reviewed, dictated and finalized at location B. IMPRESSION: 1. Decrease in large and small bowel distention, consistent with resolving obst ruction versus ileus.
--- NOTE | ~2022-05-05 | XR_ITS ---
XR abdomen/kub 1V 05/06/2022 16:38 Indication: Obstruction Procedure: KUB Comparison: CT dated 05/05/2022 Findings: There are dilated loops of small bowel and colon with moderate amount of retained fecal mat erial in the colon. No free air or pneumatosis identified. Lung bases unremarkable. No abnormal calci fications. Osteopenia. Impression: 1: Diffuse dilation of the small bowel and colon which may relate to ileus or distal colonic obstruct ion. Reviewed, dictated and finalized at location A. Impression: 1: Diffuse dilation of the small bowel and colon which may relate to ileus or d istal colonic obstruction.
--- NOTE | ~2022-05-05 | XR_ITS ---
EXAM: XR abdomen NG/feed tube insert DATE: 05/06/2022 22:34 HISTORY: NG tube placement verification . COMPARISON: None available. FINDINGS: NG tube, tip and side port project over the stomach Clear lung bases. Dilated large and sm all bowel may reflect distal bowel obstruction or ileus. No organomegaly. No abnormal abdominal calci fication. Regional bones and soft tissues normal for age. IMPRESSION: NG tube, in good position. Reviewed, dictated and finalized at location K. IMPRESSION: NG tube, in good position.
--- NOTE | ~2022-05-05 | XR_ITS ---
EXAMINATION: XR abdomen/kub 1V INDICATION: Small bowel obstruction TECHNIQUE: Supine views of the abdomen were obtained on three radiographs. COMPARISON: 05/06/2022 FINDINGS: The nasogastric tube is in the stomach. There is unchanged diffuse distention of large and small bowel. There appears to be a persistent moderate volume of stool in the rectum. No free intrape ritoneal gas is identified. The visualized lung bases are clear. There are widespread sclerotic osseo us metastases. IMPRESSION: 1. Diffuse distention of large and small bowel without significant change, consistent with ileus vers us distal obstruction. 2. Widespread osseous metastatic disease. Reviewed, dictated and finalized at location B. IMPRESSION: 1. Diffuse distention of large and small bowel without significant change, cons istent with ileus versus distal obstruction. 2. Widespread osseous metastatic disease.
--- NOTE | ~2022-05-05 | XR_ITS ---
EXAMINATION: XR enema water soluble DATE: 05/07/2022 11:56 INDICATION: Possible distal colonic obstruction TECHNIQUE: A clearance coordinator radiograph was obtained. A catheter was inserted into the patient's rectum. 1000 m L Gastrografin water-soluble contrast was infused by gravity. Fluoroscopic spot images and convention al radiographs were obtained. Fluoroscopy exposure time was 0.8 minutes. A total of 31 fluoroscopic images and 3 overhead radiographs were obtained COMPARISON: AP dated 05/17/2022 at 6:41 AM FINDINGS: Contrast was infused throughout the length of the colon extending to the tip the cecum. There are mul tiple large mobile filling defects throughout the colon correspond to the large amount of stool seen on the prior imaging. In addition there is moderate amount of gas in the ascending and transverse col on as well as throughout multiple loops of gas-filled but not frankly dilated small bowel. No strictu res or suspicious mucosal irregularity is identified. Assessment for polyps or other small intralumin al masses is markedly limited by the large amount of stool. Nasogastric tube tip in proximal side por t in the body of the stomach. Lung bases are clear. Heart size is normal. IMPRESSION: 1. Large amount of stool throughout the colon with prominent gas in the proximal colon and throughout multiple gas-filled but not frankly dilated loops of small bowel. No strictures identified and appea rances most consistent with constipation and ileus. Reviewed, dictated and finalized at location A. IMPRESSION: 1. Large amount of stool throughout the colon with prominent gas in the proxima l colon and throughout multiple gas-filled but not frankly dilated loops of sma ll bowel. No strictures identified and appearances most consistent with constip ation and ileus.
--- NOTE | ~2022-05-05 | CT_ITS ---
EXAMINATION: CT abdomen pelvis w con INDICATION: Coffee-ground emesis TECHNIQUE: Computed tomographic images of the abdomen and pelvis were obtained after the administrati on of 100 cc of Omnipaque 300 intravenous contrast. The dose-length product (DLP) was 575.42 mGy-cm. Automated exposure control and iterative reconstruction technique were employed. COMPARISON: 04/17/2022 FINDINGS: Patchy airspace and groundglass opacities persist in the visualized lung bases but have imp roved. The heart size is normal. There is circumferential wall thickening of the visualized distal es ophagus. Cysts of the liver measure up to 8 mm in the left hepatic lobe. The pancreas, gallbladder, a nd adrenal glands are normal. The bladder is decompressed by a Son catheter. Previously described b ilateral hydronephrosis has resolved. There is a 1.4 cm cyst of the right kidney. No pathologically e nlarged abdominal or pelvic lymph nodes are identified. Punctate calcifications in an otherwise sue l spleen likely represent healed granulomatous disease. There is a large volume of stool in the sigmo id colon and rectum. There is mild fat stranding at the rectosigmoid junction. There are mildly diste nded loops of large and small bowel. No free intraperitoneal gas is identified. There is a left ingui nal hernia containing fat. Widespread sclerotic lesions of the bone are again noted. There is an unch anged lytic lesion of the right sacral ala. There is diffuse wall thickening of the urinary bladder. IMPRESSION: 1. Large volume of stool in the sigmoid colon and rectum with mild colonic and small bowel distention , ileus versus distal obstruction. Fat stranding surrounding the rectum could reflect stercoral colit is. 2. Widespread sclerotic lesions of the bone and lytic lesion of the right sacral ala, consistent with metastatic disease. 3. Wall thickening of the urinary bladder, possible cystitis. Reviewed, dictated and finalized at location B. IMPRESSION: 1. Large volume of stool in the sigmoid colon and rectum with mild colonic and small bowel distention, ileus versus distal obstruction. Fat stranding surround ing the rectum could reflect stercoral colitis. 2. Widespread sclerotic lesions of the bone and lytic lesion of the right sacra l ala, consistent with metastatic disease. 3. Wall thickening of the urinary bladder, possible cystitis.
[2022-05-05 09:08] VITALS: BP 126/96; PULSE 128; RESP 27; O2SAT 95
--- NOTE | 2022-05-05 09:14 | ECG_ITS ---
Measurements Intervals [place] Rate: 127 P: 56 SD: 136 QRS: -20 QRSD: 93 T: 53 QT: 326 QTc: 474 Interpretive Statements SINUS TACHYCARDIA DELAYED PRECORDIAL R/S TRANSITION BASELINE ARTIFACT- II ABNORMAL ECG Electronically Signed On 05-05-2022 10:57:23 CDT by Eamon Méndez D.O.
[2022-05-05 09:29] LABS: Basophils Absolute Auto 0.1 K/mm3 (0.0-0.1); Basophils Percent Auto 0.2 % (0.2-1.2); Hematocrit 44.9 % (42.0-52.0); Hemoglobin 15.6 g/dL (14.0-18.0); Immature Granulocyte Absolute 1.29 K/mm3 (0.00-0.031); Immature Granulocyte Percent A 5.6 % (0-0.5); Lymphocytes Absolute Auto 1.22 K/mm3 (0.9-3.2); Lymphocytes Percent Auto 5.3 % (18.3-44.2); Mean Corpuscular HGB Conc 34.7 g/dl (32-36); Mean Corpuscular Hemoglobin 31.8 pg (26-34); Mean Corpuscular Volume 91.4 fl (80-100); Mean Platelet Volume 9.9 fl (7.4-10.4); Monocytes Absolute Auto 1.4 K/mm3 (0.1-0.6); Monocytes Percent Auto 6.3 % (2.6-8.5); Neutrophils Absolute Auto 18.9 K/mm3 (1.3-6.7); Neutrophils Percent Auto 82.6 % (45.5-73.1); Platelet Count Result 329 k/mm3 (150-375); Red Blood Count 4.91 M/mm3 (4.6-6.20); Red Cell Distribution Width 12.7 % (11.5-14.5); White Blood Count 22.9 K/mm3 (4.5-10.0)
[2022-05-05 09:40] LABS: Alanine Aminotransferase 24 U/L (6-50); Albumin Level 4.4 g/dL (3.5-5.1); Alkaline Phosphatase 864 U/L (38-126); Anion Gap 9 mmol/L (8-16); Aspartate Amino Transferase 50 U/L (17-59); Bilirubin,Total 0.8 mg/dL (0.2-1.3); Blood Urea Nitrogen 48 mg/dL (9-20); Calcium 8.9 mg/dL (8.4-10.2); Carbon Dioxide 28 mmol/L (22-30); Chloride 90 mmol/L (98-107); Estimated CRCL calculation 53 ml/min; Estimated Glomerular Filt Rate > 60; Glucose 163 mg/dL (65-110); Lipase 50 U/L (23-300); Potassium 3.6 mmol/L (3.4-5.0); Sodium 127 mmol/L (137-145)
[2022-05-05] MEDS: PANTOPRAZOLE SODIUM IV 40 MG VIAL 80 MG IV PUSH (09:41)
[2022-05-05] MEDS: LACTATED RINGERS 1,000 ML 999 ML IV CONT ×2 (09:42→11:10)
[2022-05-05] MEDS: METOCLOPRAMIDE HCL INJ 10 MG/2 ML VIAL IV PUSH (09:42)
--- NOTE | 2022-05-05 10:08 | PC.NURSE ---
No urine output in clamped lei. Scanned bladder with bladder scan which showed 42mL of urine. Lei still in place and intact.
[2022-05-05 10:30] LABS: INR 1.3
[2022-05-05 10:31] LABS: Partial Thromboplastin Time 29.3 SECONDS (22.3-36.8)
[2022-05-05 11:04] LABS: SARS-CoV-2 RNA PCR Positive
[2022-05-05 11:12] VITALS: BP 123/78; PULSE 127; RESP 18; O2SAT 95
[2022-05-05 12:05] LABS: Appearance Urine Clear (Clear); Bilirubin Urine Negative (Negative); Blood Urine Negative (Negative); Color Urine Yellow (Yellow); Glucose Urine UA Negative (Negative); Ketones Urine Negative (Negative); Leukocyte Esterase Ur Negative LEU/UL (Negative); Nitrate Urine Negative (Negative); Protein Urine Negative (Negative); Specific Grav Ur <= 1.005 (1.001-1.035); Urobilinogen Urine 0.2 mg/dL (<2.0)
[2022-05-05 12:06] LABS: Add Urine Microscopic? NO
--- NOTE | 2022-05-05 12:11 | ED.NAVMDI ---
HPI - Nausea/Vomiting/Diarrhea General Chief complaint: Nausea/Vomiting/Diarrhea Stated complaint: coffee ground emesis Time Seen by Provider: 05/05/22 09:36 History of Present Illness HPI Narrative: 71-year-old male who is states that last night he had several episodes of coffee-ground emesis, and some abdominal discomfort, was brought into the ER today by EMS, who gave him some Zofran on the way. On my evaluation, he states that he does not feel all together well, and still slightly nauseous, denies any fevers or chills, cough, chest pain or difficulty breathing. Denies any history of alcohol use or liver issues. Had been seen recently for blood in his stool. Related Data Home Medications Medication Instructions Recorded Confirmed ekeqjhgr-lzk-wfgwv acid 300 1 tablet PO DAILY 05/27/21 04/27/22 mcg-lycopene 600 mcg-lutein 300 mcg tablet (Centrum Silver Men) omeprazole magnesium 20 mg 20 mg PO DAILY 05/27/21 04/27/22 tablet,delayed release (Prilosec OTC) aspirin 81 mg tablet,delayed 81 mg PO DAILY 06/02/21 04/27/22 release (Adult Aspirin Regimen) Allergies Allergy/AdvReac Type Severity Reaction Status Date / Time No Known Allergies Allergy Verified 04/27/22 11:42 Review of Systems Review of Systems: CONST: No fever. HEENT: No sore throat C/V: No chest pain RESP: No cough GI: Reports abdominal pain, coffee-ground emesis : No dysuria. M/S: No joint pain. SKIN: No rash. NEURO: [No headache or focal numbness or weakness] PSYCH: [No depression] [facility] Past Medical History Medical History Elevated PSA (06/2021) Hypertension Positive colorectal cancer screening using Cologuard test (06/2021) Has yet to have a colonoscopy as of April 2022. Surgical History Surgical History History of cardiac catheterization History of left inguinal hernia repair (07/05/15) History of right inguinal hernia repair (01/25/19) Family History Family History Mother Family history of liver disease Sibling Family history of malignant neoplasm Father Family history of kidney disease Other Family history of cardiovascular disease Hypertension Social History Social History Social History: Surrogate decision maker: More Gil, sister. Code status: Full code. Smoking packs per day: 1 Smoking cigarettes per day: 20.0 Years smoked: 20 Smoking pack-years: 20.00 Smoking status: Former smoker Second hand tobacco smoke exposure: Yes Alcohol intake: never Substance use: current Substance use type: marijuana Spiritual care concerns: No Exam Narrative: EXAMINATION OF ORGAN SYSTEMS/BODY AREAS: Constitutional: Vital signs per nursing GENERAL: Appears slightly uncomfortable like he wants to vomit HEAD: Normal with no signs of head trauma. EYES: EOMI, conjunctiva normal ENT: Hearing grossly intact LUNGS: Nonlabored breathing. HEART: [Regular rate and rhythm] ABD: [Soft], [nontender to palpation] RECTAL: Brown stool EXT: Normal range of motion SKIN: [No rashes or lesions.] NEURO: [Alert and oriented x 3. No gross focal sensory or strength deficits.] PSYCH: Normal affect Course Vital Signs Vital signs: Vital Signs Pulse Rate 128 H 05/05/22 09:08 Respiratory Rate 27 H 05/05/22 09:08 Blood Pressure 126/96 H 05/05/22 09:08 Pulse Oximetry 95 05/05/22 09:08 Oxygen Delivery Room Air 05/05/22 09:08 Pulse Rate 127 H 05/05/22 11:12 Respiratory Rate 18 05/05/22 11:12 Blood Pressure 123/78 05/05/22 11:12 Pulse Oximetry 95 05/05/22 11:12 Oxygen Delivery Room Air 05/05/22 09:08 MDM - Nausea/Vomiting/Diarrhea MDM Narrative Medical decision making narrative: 71-year-old male presenting with coffee-ground emesis, vitals notable for tachycardia, exam show
--- NOTE | 2022-05-05 12:12 | PM.IMHP ---
H&P: HPI History of Present Illness Date/Time: 05/05/22 12:12 Chief Complaint: Coffee-ground emesis Narrative: This is a 71-year-old male patient who came to the emergency room after having several episodes of coffee-ground emesis last night. The patient has a past medical history of prostate cancer. The patient is also on apixaban but is on sure of why he is on apixaban. Patient was brought into the emergency room today via EMS he was given Zofran on the way. The patient stated that he was feeling nauseated. Denies any fever chills. Patient's white count was noted to be 22.9. Sodium is chronically low and is at his baseline of 127 today. His blood sugars 163 and he denies any history of diabetes. Patient was once again found to be COVID positive today. GI has been consulted. The patient was started on Reglan, pantoprazole, fluids. ( The patient was seen in the emergency room on 05/02/2022 for GI bleed. He was found to be Hemoccult positive at that time. Patient was also discharged from the hospital on 04/21/2022 after acute kidney injury and he was COVID positive at that time.) Review of Systems Review of Systems: Patient appears. All systems reviewed & are unremarkable except as noted in HPI and below Constitutional: Constitutional: Reports as per HPI and Reports no additional constitutional complaints Eyes: Eyes: Reports as per HPI and Reports no additional eye complaints ENT: Reports system reviewed and no additional complaints, except as documented and Reports Normal hearing present Cardiovascular: Cardiovascular: Reports no additional cardiovascular complaints Respiratory: Respiratory: Reports no additional respiratory complaints and Reports no additional respiratory complaints Gastrointestinal: Gastrointestinal: Reports as per HPI and Reports no additional gastrointestinal complaints Musculoskeletal: Musculoskeletal: Reports no additional musculoskeletal complaints Integumentary/Breasts: Skin/Breast: Reports system reviewed and no additional complaints, except as docu and Reports as per HPI Neurologic: Reports system reviewed and no additional complaints, except as documented, Reports as per HPI and Reports Normal hearing present Psychiatric: Psychiatric: Reports no additional psychiatric complaints and Reports as per HPI Endocrine: Endocrine: Reports no additional endocrine complaints Hematologic/Lymphatic: Hematologic/Lymphatic: Reports no additional hematologic/lymphatic complaints Allergic/Immunologic: Allergic/Immunologic: Reports no additional allergic/immunologic complaints [facility] Past Medical History Medical History Elevated PSA (06/2021) Hypertension Positive colorectal cancer screening using Cologuard test (06/2021) Has yet to have a colonoscopy as of April 2022. Surgical History Surgical History History of cardiac catheterization History of left inguinal hernia repair (07/05/15) History of right inguinal hernia repair (01/25/19) Family History Family History Mother Family history of liver disease Sibling Family history of malignant neoplasm Father Family history of kidney disease Other Family history of cardiovascular disease Hypertension Social History Social History (Updated 05/05/22 @ 13:28 by Mitali Little NP) Social History: Surrogate decision maker: The patient would like his nephew can add to be the durable power banking attorney for healthcare. Code status: Full code. Smoking packs per day: 1 Smoking cigarettes per day: 20.0 Years smoked: 20 Smoking pack-years: 20.00 Smoking status: Former smoker Second hand tobacco smoke exposure: Yes Alcohol intake: never Substance use: current Substance use type: marijuana Additional living arrangements comments: Rehab facility Occupation/Educat
[2022-05-05 12:58] VITALS: BP 113/82; PULSE 129; RESP 18; O2SAT 94
[2022-05-05 13:46] VITALS: BP 126/88; PULSE 128; RESP 20; O2SAT 92
--- NOTE | 2022-05-05 14:00 | ADMGEN ---
This patient, Adolph Chicas, was admitted to 3 [facility] [place] Surg Room 331-01. Patient/family oriented to hospital policies and general routines including ID bracelet, bed and alarms, visiting hours, pain management, procedures, bathroom and other care routines, personal items, smoking policy, room service/diet, and visiting hours. Information on how to activate the Rapid Response Team has been discussed. Patient/Family are encouraged to report perceived risks to care and to ask questions if they do not understand what they are told or what they should do.
[2022-05-05 14:50] LABS: Hematocrit 38.9 % (42.0-52.0); Hemoglobin 13.5 g/dL (14.0-18.0)
[2022-05-05 15:05] LABS: Hemoglobin A1C 5.5 % (<5.7)
[2022-05-05 15:50] VITALS: BMI 25.1
--- NOTE | 2022-05-05 15:55 | ADMGEN ---
This patient, Adolph Chicas, was admitted to 3 [facility] Surg Room 331-01. Patient/family oriented to hospital policies and general routines including ID bracelet, bed and alarms, visiting hours, pain management, procedures, bathroom and other care routines, personal items, smoking policy, room service/diet, and visiting hours. Information on how to activate the Rapid Response Team has been discussed. Patient/Family are encouraged to report perceived risks to care and to ask questions if they do not understand what they are told or what they should do.
[2022-05-05] MEDS: LACTATED RINGERS 1,000 ML 100 ML IV CONT (16:24)
[2022-05-05] MEDS: CIPROFLOXACIN 400 MG/D5W 200ML 200 ML 200 MG IVPB ×2 (16:26→22:25)
[2022-05-05] MEDS: metroNIDAZOLE 500 MG/ISO 100ML 500 MG/100 ML BAG 100 MG IVPB ×2 (18:00→22:25)
[2022-05-05 19:38] LABS: Hematocrit 39.9 % (42.0-52.0)
[2022-05-05 20:00] VITALS: BP 130/82; PULSE 125; RESP 18; TEMP 36.4; O2SAT 92
[2022-05-05] MEDS: PANTOPRAZOLE SODIUM IV 40 MG VIAL IV PUSH (20:44)
[2022-05-05] MEDS: HYDROcodone/acetaminophen (*CRX) 5-325 MG TABLET 1 TAB PO (23:54)
[2022-05-06] VITALS (10 sets, daily range): BP systolic 91–116; BP diastolic 67–79; PULSE 116–122; RESP 16–20; TEMP 36.2–36.6; O2SAT 89–96
[2022-05-06 03:06] LABS: Basophils Absolute Auto 0.1 K/mm3 (0.0-0.1); Basophils Percent Auto 0.5 % (0.2-1.2); Hematocrit 38.2 % (42.0-52.0); Hemoglobin 13.3 g/dL (14.0-18.0); Immature Granulocyte Percent A 4.4 % (0-0.5); Lymphocytes Absolute Auto 1.34 K/mm3 (0.9-3.2); Lymphocytes Percent Auto 5.8 % (18.3-44.2); Mean Corpuscular HGB Conc 34.8 g/dl (32-36); Mean Platelet Volume 9.8 fl (7.4-10.4); Monocytes Absolute Auto 1.9 K/mm3 (0.1-0.6); Monocytes Percent Auto 8.2 % (2.6-8.5); Neutrophils Absolute Auto 18.6 K/mm3 (1.3-6.7); Neutrophils Percent Auto 81.1 % (45.5-73.1); Platelet Count Result 243 k/mm3 (150-375); Red Blood Count 4.15 M/mm3 (4.6-6.20); Red Cell Distribution Width 13.1 % (11.5-14.5); White Blood Count 22.9 K/mm3 (4.5-10.0)
[2022-05-06] MEDS: metroNIDAZOLE 500 MG/ISO 100ML 500 MG/100 ML BAG 100 MG IVPB ×4 (03:12→21:16)
[2022-05-06] MEDS: LACTATED RINGERS 1,000 ML 100 ML IV CONT ×2 (03:12→21:16)
[2022-05-06 03:18] LABS: Alanine Aminotransferase 18 U/L (6-50); Albumin Level 3.4 g/dL (3.5-5.1); Alkaline Phosphatase 663 U/L (38-126); Anion Gap 6 mmol/L (8-16); Aspartate Amino Transferase 46 U/L (17-59); Bilirubin,Total 0.5 mg/dL (0.2-1.3); Blood Urea Nitrogen 50 mg/dL (9-20); Calcium 8.2 mg/dL (8.4-10.2); Carbon Dioxide 26 mmol/L (22-30); Chloride 95 mmol/L (98-107); Estimated CRCL calculation 53 ml/min; Estimated Glomerular Filt Rate > 60; Glucose 117 mg/dL (65-110); Lactic Acid Reflex 1.6 mmol/L (0.7-2.0); Magnesium 2.1 mg/dL (1.6-2.3); Potassium 3.8 mmol/L (3.4-5.0); Sodium 127 mmol/L (137-145)
[2022-05-06] MEDS: CIPROFLOXACIN 400 MG/D5W 200ML 200 ML 200 MG IVPB ×3 (05:15→22:24)
[2022-05-06 07:38] LABS: Hematocrit 37.8 % (42.0-52.0); Hemoglobin 13.1 g/dL (14.0-18.0)
[2022-05-06 08:51] LABS: Hematocrit 38.3 % (42.0-52.0); Hemoglobin 13.1 g/dL (14.0-18.0); Mean Corpuscular HGB Conc 34.2 g/dl (32-36); Mean Corpuscular Hemoglobin 31.7 pg (26-34); Mean Corpuscular Volume 92.7 fl (80-100); Mean Platelet Volume 10.2 fl (7.4-10.4); Platelet Count Result 273 k/mm3 (150-375); Red Blood Count 4.13 M/mm3 (4.6-6.20); Red Cell Distribution Width 13.2 % (11.5-14.5); White Blood Count 22.6 K/mm3 (4.5-10.0)
[2022-05-06] MEDS: PANTOPRAZOLE SODIUM IV 40 MG VIAL IV PUSH ×2 (08:51→21:17)
[2022-05-06 08:59] LABS: Anion Gap 6 mmol/L (8-16); Blood Urea Nitrogen 47 mg/dL (9-20); Calcium 8.2 mg/dL (8.4-10.2); Carbon Dioxide 28 mmol/L (22-30); Chloride 93 mmol/L (98-107); Estimated CRCL calculation 53 ml/min; Estimated Glomerular Filt Rate > 60; Glucose 105 mg/dL (65-110); Potassium 3.7 mmol/L (3.4-5.0); Sodium 127 mmol/L (137-145)
--- NOTE | 2022-05-06 14:17 | WPDGICN ---
Assessment and Plan Assessment and plan (1) Coffee ground emesis: Code(s): K92.0 - Hematemesis Status: Acute Assessment and Plan: h/h stable at 13 and he has not had any more episodes in setting of COVID pneumonia, I would defer EGD unless any significant drop in hb continue with iv protonix, ok to try liquid diet for now I would like to wait another 3-4 weeks to do EGD until he fully recovers (at the same time I also will do colonoscopy since never had one and also had + cologuard previously) (2) Constipation: Code(s): K59.00 - Constipation, unspecified Status: Acute Assessment and Plan: noted findings of CT scan benign exam miralax at some point will need colonoscopy (never had one) (3) Hyponatremia: Code(s): E87.1 - Hypo-osmolality and hyponatremia Status: Acute Assessment and Plan: chronically low (4) Stercoral colitis: Code(s): K52.89 - Other specified noninfective gastroenteritis and colitis Status: Acute Assessment and Plan: on treatment (5) Metastatic malignant neoplasm to prostate: Code(s): C79.82 - Secondary malignant neoplasm of genital organs Status: Acute Assessment and Plan: by oncology (6) Bony metastasis: Code(s): C79.51 - Secondary malignant neoplasm of bone Status: Acute (7) COVID-19: Code(s): U07.1 - COVID-19 Status: Acute Assessment and Plan: by primary, on oxygen (8) Positive colorectal cancer screening using Cologuard test: Onset Date: 06/2021 Code(s): R19.5 - Other fecal abnormalities Status: Acute Assessment and Plan: will need colonoscopy GI Consult Note Consult date/time: 05/06/22 14:17 Reason for consult: coffee ground emesis HPI: Adolph Chicas is a 71 year old male with past medical history of prostate cancer with metastasis to bones (referred to oncology), also recent hospitalization with HILDA, urinary retention and COVID pneumonia. He came this time with several episodes of coffee ground emesis, denies abdominal pain. Today he is feeling better but he has not had a BM. Never had scopes. Also long standing GERD using omeprazole over the counter but never had EGD. Hb has been stable 13 since admission. He is on apixaban.?Found to have elevated white count 22.9, chronic hyponatremia, now is 127. CT scan reviewed and showed large volume of stool in the sigmoid colon and rectum with mild colonic and small bowel distention, ileus versus distal obstruction. Fat stranding surrounding the rectum could reflect stercoral colitis. Widespread sclerotic lesions of the bone and lytic lesion of the right sacral ala, consistent with metastatic disease. Wall thickening of the urinary bladder, possible cystitis. CXR showed pneumonia, he is wearing supplemental oxygen now. Started on iv protonix. Review of Systems Constitutional: Constitutional: Denies chills Eyes: Eyes: Reports no additional eye complaints ENT: Reports Normal hearing present Cardiovascular: Cardiovascular: Denies chest pain Respiratory: Respiratory: Reports chest congestion Gastrointestinal: Gastrointestinal: Reports heartburn, Reports nausea and Reports vomiting Musculoskeletal: Musculoskeletal: Denies back pain Integumentary/Breasts: Skin/Breast: Denies dry skin Neurologic: Denies Abnormal speech present Psychiatric: Psychiatric: Denies anxiety [facility] Past Medical History Medical History (Updated 05/06/22 @ 14:24 by Tereso Nassar MD) Coffee ground emesis Elevated PSA (06/2021) Hypertension Positive colorectal cancer screening using Cologuard test (06/2021) Has yet to have a colonoscopy as of April 2022. Stercoral colitis Surgical History Surgical History History of cardiac catheterization History of left inguinal hernia repair (07/05/15) History of right inguinal hernia repair (01/25/19) Fa
[2022-05-06] MEDS: TAMSULOSIN HCL 0.4 MG CAPSULE PO (14:19)
[2022-05-06] MEDS: amLODIPine BESYLATE 5 MG TABLET PO (14:19)
[2022-05-06] MEDS: DOCUSATE SODIUM 100 MG CAPSULE PO (14:19)
[2022-05-06] MEDS: lisinopriL 20 MG TABLET PO (14:19)
[2022-05-06] MEDS: HYDROcodone/acetaminophen (*CRX) 5-325 MG TABLET 1 TAB PO (14:23)
--- NOTE | 2022-05-06 15:35 | P.PNIM_ITS ---
Progress Note: A&P Assessment and Plan (1) UGIB (upper gastrointestinal bleed): Code(s): K92.2 - Gastrointestinal hemorrhage, unspecified Status: Acute Assessment and Plan: Patient with episode of blood-streaked stool * Appreciate GI consultation * Continue pantoprazole * Aspirin and Eliquis on hold at this time * H&H remaining stable 13.0-14.0 * Will need outpatient EGD and colonoscopy * Recheck H&H this evening to ensure remaining stable * On Cipro and Flagyl for possible stercoral colitis (2) Bowel obstruction: Code(s): K56.609 - Unspecified intestinal obstruction, unspecified as to partial versus complete obstruction Status: Acute Assessment and Plan: CT of the abdomen/pelvis shows large volume of stool in sigmoid colon and rectum with mild colonic and small bowel distension, concerning for ileus vs distal obstruction * CXR performed today showed multiple dilated bowel loops in the visualized upper abdomen * Obtain KUB * Consult to General surgery. Recommendations are appreciated. * NPO diet while awaiting evaluation. Continue with IV Fluids while NPO (3) Metastatic malignant neoplasm to prostate: Code(s): C79.82 - Secondary malignant neoplasm of genital organs Status: Acute Assessment and Plan: Discovered at last hospitalization 2 weeks prior * Prostate cancer is suspected and patient has been referred to Urology. Unclear if biopsy has been completed but it does not appear to be so * CT scan showed widespread sclerotic lesions of the bone and lytic lesions of the right sacral ala consistent with metastatic disease * Skeletal survey completed at previous hospitalization * Patient does complain of bone pain. Continue analgesics as needed * It does not appear that patient has been referred to Oncology. Will proceed with consultation to oncologist, Dr. Garcia. (4) COVID-19: Code(s): U07.1 - COVID-19 Status: Acute Assessment and Plan: Initial COVID positive 04/17/22 * CXR demonstrates resolving pneumonia * Isolation precautions discontinued (5) Hyponatremia: Code(s): E87.1 - Hypo-osmolality and hyponatremia Status: Acute Assessment and Plan: Chronic on review of prior labs * May be related to malignancy * Montior BMP * Cautious fluid rehydration * Recheck sodium this evening to ensure remaining stable. (6) Hypertension: Code(s): I10 - Essential (primary) hypertension Status: Acute Assessment and Plan: Blood pressures well controlled. * P.o. antihypertensives on hold at this time (7) Leukocytosis: Code(s): D72.829 - Elevated white blood cell count, unspecified Status: Acute [place]: [place] [address] * Patient reports completing a steroid taper a week ago (or more, history is unclear) * No signs/symptoms of acute infection. Stercoral colitis suggested on imaging and patient is on antibiotic for this * Patient is afebrile * Continue to monitor (8) Sinus tachycardia: Code(s): R00.0 - Tachycardia, unspecified Status: Acute Assessment and Plan: Persistent issue since last hospitalization 2 weeks ago. * Etiology for this is unclear. * CTA not able to be completed due to renal function, therefore during last hospitalization he was started on treatment for possible pulmonary embolism given his high risk due to malignancy. * Tachycardia persists. * Will evaluate TSH * Checked orthostatics * Continue IV fluids
--- NOTE | 2022-05-06 15:35 | PM.IMPN ---
Progress Note: A&P Assessment and Plan (1) UGIB (upper gastrointestinal bleed): Code(s): K92.2 - Gastrointestinal hemorrhage, unspecified Status: Acute Assessment and Plan: Patient with episode of blood-streaked stool Appreciate GI consultation Continue pantoprazole Aspirin and Eliquis on hold at this time H&H remaining stable 13.0-14.0 Will need outpatient EGD and colonoscopy Recheck H&H this evening to ensure remaining stable On Cipro and Flagyl for possible stercoral colitis (2) Bowel obstruction: Code(s): K56.609 - Unspecified intestinal obstruction, unspecified as to partial versus complete obstruction Status: Acute Assessment and Plan: CT of the abdomen/pelvis shows large volume of stool in sigmoid colon and rectum with mild colonic and small bowel distension, concerning for ileus vs distal obstruction CXR performed today showed multiple dilated bowel loops in the visualized upper abdomen Obtain KUB Consult to General surgery. Recommendations are appreciated. NPO diet while awaiting evaluation. Continue with IV Fluids while NPO (3) Metastatic malignant neoplasm to prostate: Code(s): C79.82 - Secondary malignant neoplasm of genital organs Status: Acute Assessment and Plan: Discovered at last hospitalization 2 weeks prior Prostate cancer is suspected and patient has been referred to Urology. Unclear if biopsy has been completed but it does not appear to be so CT scan showed widespread sclerotic lesions of the bone and lytic lesions of the right sacral ala consistent with metastatic disease Skeletal survey completed at previous hospitalization Patient does complain of bone pain. Continue analgesics as needed It does not appear that patient has been referred to Oncology. Will proceed with consultation to oncologist, Dr. Garcia. (4) COVID-19: Code(s): U07.1 - COVID-19 Status: Acute Assessment and Plan: Initial COVID positive 04/17/22 CXR demonstrates resolving pneumonia Isolation precautions discontinued (5) Hyponatremia: Code(s): E87.1 - Hypo-osmolality and hyponatremia Status: Acute Assessment and Plan: Chronic on review of prior labs May be related to malignancy Montior BMP Cautious fluid rehydration Recheck sodium this evening to ensure remaining stable. (6) Hypertension: Code(s): I10 - Essential (primary) hypertension Status: Acute Assessment and Plan: Blood pressures well controlled. P.o. antihypertensives on hold at this time (7) Leukocytosis: Code(s): D72.829 - Elevated white blood cell count, unspecified Status: Acute [place] [address] Patient reports completing a steroid taper a week ago (or more, history is unclear) No signs/symptoms of acute infection. Stercoral colitis suggested on imaging and patient is on antibiotic for this Patient is afebrile Continue to monitor (8) Sinus tachycardia: Code(s): R00.0 - Tachycardia, unspecified Status: Acute Assessment and Plan: Persistent issue since last hospitalization 2 weeks ago. Etiology for this is unclear. CTA not able to be completed due to renal function, therefore during last hospitalization he was started on treatment for possible pulmonary embolism given his high risk due to malignancy. Tachycardia persists. Will evaluate TSH Checked orthostatics Continue IV fluids Continue to monitor (9) Chronic anticoagulation: Code(s): Z79.01 - residential (current) use of anticoagulants Status: Acute Assessment and Plan: Patient started on Eliquis at last hospitalization 2 weeks ago Eliquis on hold at this time due to GI bleeding H&H remained stable Resume when clinically appropriate Subjective Date/time seen: 05/06/22 15:35 Interval history: Date of service: 05/06/2022 Adolph Chicas is a 71
--- NOTE | 2022-05-06 17:27 | PM.CNGS ---
Assessment and Plan Assessment and plan (1) Fecal impaction in rectum: Code(s): K56.41 - Fecal impaction Status: Acute Assessment and Plan: Suspect fecal impaction is the source of the small bowel and colonic dilatation. This can act like a distal colonic obstruction. Although there was no tumor seen on CT scan, there still may be a rectal cancer. Patient will get soap suds enema tonight. Eventually will have water-soluble contrast enema. Does need colonoscopy which he has known for over a year. (2) Stercoral colitis: Code(s): K52.89 - Other specified noninfective gastroenteritis and colitis Status: Acute Assessment and Plan: Noted on CT scan. Due to fecal impaction. May be cause of elevated white count. (3) UGIB (upper gastrointestinal bleed): Code(s): K92.2 - Gastrointestinal hemorrhage, unspecified Status: Acute Assessment and Plan: coffee-ground emesis to be evaluated by Dr. Mendez. H&H is in the normal range (4) Chronic anticoagulation: Code(s): Z79.01 - marine oil terminal superintendent (current) use of anticoagulants Status: Acute Assessment and Plan: Currently on hold. (5) Metastatic malignant neoplasm to prostate: Code(s): C79.82 - Secondary malignant neoplasm of genital organs Status: Acute Assessment and Plan: Widely metastatic, also has urinary retention, Son catheter in place. History of Present Illness Consult details Consult date: 05/07/22 Reason for consult: other (bowel obstruction or ileus) Requesting physician: Elana Yu PA-C Narrative: patient is a 71-year-old man with widely metastatic prostate cancer. He was recently admitted to [facility] on 04/17/2022 with urinary retention and was discharged with an indwelling Son catheter. This was removed later as an outpatient but his urinary retention returned. He came back to the emergency room and a Son catheter is been in place since then. Also on that admission of 04/17/2022 he did test positive for COVID. He was thought to have pneumonia and sputum was positive for Pseudomonas. He was treated for the Pseudomonas and at discharge on 04/21 had no symptoms of COVID. No treatment for COVID such as remdesivir was given during this admission. Patient returned to our emergency room on 05/05/2022 this time complaining of multiple episodes of coffee-ground emesis. He was not anemic but he did have an elevated white count of 22,900. Stool was noted to be heme-positive as well. CT scan of the abdomen pelvis done in the emergency room showed a large amount of stool in the sigmoid and rectum with inflammation of the rectum suggesting stercoral colitis. Patient again tested positive for COVID but is asymptomatic and his isolation precautions have been discontinued. Patient had a chest x-ray early this morning as he does have this leukocytosis. On the chest x-ray, multiple dilated loops of small bowel suggesting small bowel obstruction was noted. The lungs showed resolving pneumonia. The chest x-ray triggered a KUB which showed multiple dilated loops of small bowel and colon as well as a tremendous amount of stool in the sigmoid and rectum as noted on the CT scan. This is read as ileus versus distal colonic obstruction. We were asked to see the patient regarding this problem. His main complaint today is hip pain. He does not feel as nauseated as he did before. I reviewed both his CT scan and chest x-ray as well as today's abdominal film. He has very dilated small and large bowel with a tremendous amount of stool in the rectum and sigmoid. He is seen now in consultation. He has not had a bowel movement since 05/04/2022. He has noticed some streaks of blood in his stool but has hemorrhoids and attributed this to the hemorrhoids. Review of Systems Review of Systems: All systems reviewed & are unremarkable except as noted in HPI and below ( HPI and those items noted chuck
[2022-05-06 20:07] LABS: Hematocrit 37.5 % (42.0-52.0); Hemoglobin 12.7 g/dL (14.0-18.0)
[2022-05-06 20:11] LABS: Sodium 127 mmol/L (137-145)
[2022-05-06] MEDS: HYDROmorphone HCL INJ (*CRX) 1 MG/ML SYR 0.5 MG IV PUSH (21:41)
[2022-05-07] VITALS (9 sets, daily range): BP systolic 84–116; BP diastolic 36–79; PULSE 46–143; RESP 16–18; TEMP 36–36.8; O2SAT 90–97
[2022-05-07] MEDS: metroNIDAZOLE 500 MG/ISO 100ML 500 MG/100 ML BAG 100 MG IVPB ×4 (03:26→22:08)
[2022-05-07] MEDS: CIPROFLOXACIN 400 MG/D5W 200ML 200 ML 200 MG IVPB ×3 (05:50→23:18)
[2022-05-07 05:51] LABS: Hemoglobin 12.3 g/dL (14.0-18.0); Mean Corpuscular HGB Conc 34.2 g/dl (32-36); Mean Corpuscular Volume 93.8 fl (80-100); Mean Platelet Volume 9.9 fl (7.4-10.4); Platelet Count Result 217 k/mm3 (150-375); Red Blood Count 3.84 M/mm3 (4.6-6.20); Red Cell Distribution Width 13.2 % (11.5-14.5); White Blood Count 19.1 K/mm3 (4.5-10.0)
[2022-05-07 06:07] LABS: Anion Gap 4 mmol/L (8-16); Blood Urea Nitrogen 43 mg/dL (9-20); Carbon Dioxide 29 mmol/L (22-30); Chloride 94 mmol/L (98-107); Estimated CRCL calculation 64 ml/min; Estimated Glomerular Filt Rate > 60; Glucose 94 mg/dL (65-110); Potassium 3.7 mmol/L (3.4-5.0); Sodium 127 mmol/L (137-145)
[2022-05-07] MEDS: PANTOPRAZOLE SODIUM IV 40 MG VIAL IV PUSH ×2 (08:20→22:09)
--- NOTE | 2022-05-07 13:00 | PDONCCN ---
HPI - Date of Consult Date/Time: 05/07/22 13:00 Requesting Physician: Elana Yu PA-C Primary Care Provider: Lopez See, - Consult Narrative Reason for consult: Bone lesion Narrative: Adolph Chicas is a 71 year old male with history of prostate cancer but did not keep appointment with the urologist. Patient was seen by Urology on April 17 and prostate biopsy was performed as an outpatient. Plan was to start him on ADT therapy after the biopsy results. Patient had a skeletal survey on April 18 that showed sclerotic pelvic and bilateral proximal femur lesion. Patient came into the hospital now with coffee-ground emesis and constipation for last 2 weeks duration. He is also complaining of right lower extremity pain. Patient was discharged from the hospital on April 21 after being treated for acute kidney injury and COVID test was positive at that time. CT abdomen and pelvis done on May 05 showed large volume of stool in sigmoid colon with small bowel distension and widespread sclerotic lesion of the bone and lytic lesion of the right sacral ala. PSA from April 17 was 942. Review of Systems - Review of Systems All systems reviewed & are unremarkable except as noted in HPI and bel - Neurologic Reports system reviewed and no additional complaints, except as documented, Reports hearing normal, Denies abnormal speech [facility] Medical History: Medical History (Last Updated 05/06/22 @ 14:24 by Tereso Nassar MD) Coffee ground emesis Elevated PSA Onset Date: 06/2021 Hypertension Positive colorectal cancer screening using Cologuard test Onset Date: 06/2021 Has yet to have a colonoscopy as of April 2022. Stercoral colitis Surgical History: Surgical History (Last Reviewed 05/05/22 @ 13:27 by Mitali Little NP) History of cardiac catheterization History of left inguinal hernia repair Onset Date: 07/05/15 History of right inguinal hernia repair Onset Date: 01/25/19 Family History: Family History (Last Reviewed 05/05/22 @ 15:45 by Naty Mcdaniel RN) Mother Family history of liver disease Sibling Family history of malignant neoplasm Father Family history of kidney disease Other Family history of cardiovascular disease Hypertension - Social History Social History: Social History (Last Updated 05/05/22 @ 13:28 by iMtali Little NP) Alcohol Use: Alcohol intake: never Substance Use: Substance use: current Substance use type: marijuana Last use: 05/04/22 Others: Spiritual care concerns: No Oppucation/Education: Occupation/Education: retired Smoking Status: Smoking status: Former smoker Tobacco type: cigarettes Second hand tobacco smoke exposure: Yes Smoking Pack-years: Smoking packs per day: 1 Smoking cigarettes per day: 20.0 Years smoked: 20 Smoking pack-years: 20.00 Meds Home Medications Medication Instructions Recorded Confirmed Type amlodipine 5 mg tablet (Norvasc) 5 mg PO QAM 30 days #90 tabs 04/27/22 05/05/22 Rx apixaban 5 mg tablet (Eliquis) 5 mg PO BID #60 tabs 04/27/22 05/05/22 Rx docusate sodium 100 mg capsule 100 mg PO DAILY #30 caps 04/27/22 05/05/22 Rx (Colace) tamsulosin 0.4 mg capsule 0.4 mg PO QAM 90 days #90 caps 04/27/22 05/05/22 Rx hydrocodone 5 mg-acetaminophen 325 1 tablet PO Q8H PRN pain #30 tabs 04/28/22 05/05/22 Rx mg tablet hydrochlorothiazide 12.5 mg tablet 12.5 tablet PO DAILY 05/05/22 05/05/22 History lisinopril 20 mg tablet 20 tablet PO DAILY 05/05/22 05/05/22 History Allergies Allergy/AdvReac Type Severity Reaction Status Date / Time No Known Allergies Allergy Verified 05/05/22 18:15 Results - Labs CBC & Chem 7: 05/07/22 05:27 05/07/22 05:27 Labs: Short CBC 05/06/22 05/07/22 Range/Units 19:52 05:27 WBC 19.1 H (4.5-10.0) K/mm3 Hgb 12.7 L 12.3 L (14.0-18.0) g/dL Hct 37.5 L 36.0 L (42.0-52.0) % Plt Co
--- NOTE | 2022-05-07 13:40 | PM.PNGS ---
Progress Note: A&P Assessment and Plan (1) Fecal impaction in rectum: Code(s): K56.41 - Fecal impaction Status: Acute Assessment and Plan: Improving, he had a large amount of stool out with manual disimpaction earlier this morning. Hypaque enema ordered today to further evaluate for a colonic obstruction, which for him will hopefully be both therapeutic and diagnostic. The Hypaque enema showed constipation, but no stricture or obstruction. Continue NG tube, bowel rest, and IV fluids. Will repeat a KUB tomorrow morning. He will eventually need a colonoscopy. (2) Stercoral colitis: Code(s): K52.89 - Other specified noninfective gastroenteritis and colitis Status: Acute Assessment and Plan: Secondary to fecal impaction. Currently on IV ciprofloxacin/flagyl. WBC down to 19K today. Trend labs, monitor. (3) UGIB (upper gastrointestinal bleed): Code(s): K92.2 - Gastrointestinal hemorrhage, unspecified Status: Acute (4) Chronic anticoagulation: Code(s): Z79.01 - correction (current) use of anticoagulants Status: Acute (5) Metastatic malignant neoplasm to prostate: Code(s): C79.82 - Secondary malignant neoplasm of genital organs Status: Acute Plan I have discussed the patient's case and plan of care with Dr. Orosco. Subjective Subjective Date/Time Seen: 05/07/22 10:40 Patient reports: feels better and flatus Interval history: Patient seen and examined this morning. He had an NG tube placed last night and was seen earlier/separately this morning by Dr. Orosco, who was able to manually disimpact a significant amount of stool at the bedside. Patient denies any BMs since disimpaction. Denies abdominal pain. He does report chronic widespread bone pain from metastatic cancer. Review of Systems Review of Systems: All systems reviewed & are unremarkable except as noted in HPI and below Exam Const: General: no acute distress and awake Orientation/consciousness: patient oriented x3 GI: Inspection: distended GI Palp: Yes Soft to palpation, No Tenderness to palpation present (GI), No Guarding due to palpation present (GI) and No Rebound tenderness present Auscultation: Hypoactive bowel sounds present (few bowel sounds heard this morning) Objective Data Vital Signs Vital Signs: Vital Signs - 24 hr 05/06/22 18:32 05/06/22 18:23 07/06/22 22:00 Temperature 97.1 F L Pulse Rate 119 H Respiratory Rate 18 Blood Pressure 91/75 L 92/77 L 94/67 L Pulse Oximetry 94 Oxygen Delivery Oxygen Flow Rate 05/06/22 20:00 05/07/22 06:00 05/07/22 08:20 Temperature 96.8 F L Pulse Rate 114 H Respiratory Rate 18 Blood Pressure 103/73 Pulse Oximetry 95 95 Oxygen Delivery Nasal Cannula Nasal Cannula Oxygen Flow Rate 1 1 Intake/Output Intake/Output: Intake & Output 05/04/22 05/05/22 05/06/22 05/07/22 23:59 23:59 23:59 23:59 Intake Total 2600 3550 400 Output Total 400 1000 100 Balance 2200 2550 300 Meds/Results Medications: Active Medications Generic Name Dose Route Start Last Admin Trade Name Freq PRN Reason Stop Dose Admin Acetaminophen 650 mg 05/06/22 15:49 Acetaminophen 325 Mg Tablet PO Q4H PRN Pain 1-3 Hydrocodone Bitart/Acetaminophen 1 tab 05/05/22 20:55 05/06/22 14:23 Hydrocodone/Acetaminophen (*Crx) 5-325 Mg Tablet PO 1 tab Q8H PRN Administration pain Amlodipine Besylate 5 mg 05/06/22 09:00 05/06/22 14:19 Amlodipine Besylate 5 Mg Tablet PO 5 mg QAM VANCE Administration Bicalutamide 50 mg 05/08/22 09:00 Bicalutamide (*Chemo) 50 Mg Tablet PO QAM VANCE Docusate Sodium 100 mg 05/06/22 09:00 05/06/22 14:19 Docusate Sodium 100 Mg Capsule PO 100 mg DAILY VANCE Administration Hydralazine HCl 10 mg 05/05/22 13:29 Hydralazine Hcl 20 Mg/Ml Vial IV PUSH Q8H PRN Blood Pressure - High Hydromorphone HCl 0.5 mg 05/06/22 21:26 05/06/22 21:41 Hyd
--- NOTE | 2022-05-07 13:53 | PM.PNGS ---
Progress Note: A&P Assessment and Plan (1) Fecal impaction in rectum: Code(s): K56.41 - Fecal impaction Status: Acute Assessment and Plan: Disimpacted. Will proceed with water-soluble contrast enema to evaluate for rectal or sigmoid neoplasm above the reach of the digital exam. This will have the added affect of providing stimulus for additional bowel movement. Continue NG for now due to significant small and large bowel dilatation. (2) Stercoral colitis: Code(s): K52.89 - Other specified noninfective gastroenteritis and colitis Status: Acute Assessment and Plan: Should improve with disimpaction and water-soluble contrast enema (3) Bowel obstruction: Code(s): K56.609 - Unspecified intestinal obstruction, unspecified as to partial versus complete obstruction Status: Acute Assessment and Plan: Appears as a distal colonic obstruction but really due to fecal impaction unless lesion is seen on water-soluble contrast study. In that case would be more of an ileus and would leave NG tube in place as the small and large bowel are still quite dilated. (4) Prostate cancer metastatic to multiple sites: Code(s): C61 - Malignant neoplasm of prostate Status: Acute Subjective Subjective Date/Time Seen: 05/07/22 07:43 Patient reports: feels better, pain is less and no bowel movement (Even with soapsuds enema) Review of Systems Review of Systems: All systems reviewed & are unremarkable except as noted in HPI and below (HPI and those items noted below) Constitutional: Constitutional: Denies chills and Denies fever(s) Cardiovascular: Cardiovascular: Denies chest pain and Denies dyspnea Respiratory: Respiratory: Denies cough and Denies dyspnea Gastrointestinal: Gastrointestinal: Reports as per HPI Integumentary/Breasts: Skin/Breast: Denies lesions and Denies rash Exam Const: General: cooperative, comfortable, no acute distress, alert and awake GI: Inspection: distended and no visible herniation GI Palp: Yes Soft to palpation, No Tenderness to palpation present (GI), No Hernia present and No Palpable mass present Auscultation: absent bowel sounds Rectal Exam: fecal impaction (Stool much softer this morning, patient disimpacted) Other: Patient disimpacted at bedside. Large amount of solid stool removed. Tolerated well. Objective Data Vital Signs Vital Signs: Vital Signs - 24 hr 05/06/22 18:32 05/06/22 18:23 05/06/22 22:00 Temperature 36.2 C L Pulse Rate 119 H Respiratory Rate 18 Blood Pressure 91/75 L 92/77 L 94/67 L Pulse Oximetry 94 Oxygen Delivery Oxygen Flow Rate 05/06/22 20:00 05/07/22 06:00 05/07/22 08:20 Temperature 36.0 C L Pulse Rate 114 H Respiratory Rate 18 Blood Pressure 103/73 Pulse Oximetry 95 95 Oxygen Delivery Nasal Cannula Nasal Cannula Oxygen Flow Rate 1 1 Intake/Output Intake/Output: Intake & Output 05/04/22 05/05/22 05/06/22 05/07/22 23:59 23:59 23:59 23:59 Intake Total 2600 3550 400 Output Total 400 1000 100 Balance 2200 2550 300 Meds/Results Medications: Active Medications Generic Name Dose Route Start Last Admin Trade Name Freq PRN Reason Stop Dose Admin Acetaminophen 650 mg 05/06/22 15:49 Acetaminophen 325 Mg Tablet PO Q4H PRN Pain 1-3 Hydrocodone Bitart/Acetaminophen 1 tab 05/05/22 20:55 05/06/22 14:23 Hydrocodone/Acetaminophen (*Crx) 5-325 Mg Tablet PO 1 tab Q8H PRN Administration pain Amlodipine Besylate 5 mg 05/06/22 09:00 05/06/22 14:19 Amlodipine Besylate 5 Mg Tablet PO 5 mg QAM VANCE Administration Bicalutamide 50 mg 05/08/22 09:00 Bicalutamide (*Chemo) 50 Mg Tablet PO QAM VANCE Docusate Sodium 100 mg 05/06/22 09:00 05/06/22 14:19 Docusate Sodium 100 Mg Capsule PO 100 mg DAILY VANCE Administration Hydralazine HCl 10 mg 05/05/22 13:29 Hydralazine Hcl 20 Mg/Ml Vial IV PUSH Q8H PRN
[2022-05-07] MEDS: LACTATED RINGERS 1,000 ML 100 ML IV CONT (15:54)
--- NOTE | 2022-05-07 16:12 | P.PNIM_ITS ---
Progress Note: A&P Assessment and Plan (1) UGIB (upper gastrointestinal bleed): Code(s): K92.2 - Gastrointestinal hemorrhage, unspecified Status: Acute Assessment and Plan: Patient with episode of blood-streaked stool and coffee-ground emesis * Appreciate GI consultation * Continue pantoprazole BID * Aspirin and Eliquis on hold at this time * H&H remaining stable. Slight decline today from baseline which is likely dilutional * Will need outpatient EGD and colonoscopy * No further episodes of bleeding (2) Bowel obstruction: Code(s): K56.609 - Unspecified intestinal obstruction, unspecified as to partial versus complete obstruction Status: Acute Assessment and Plan: CT of the abdomen/pelvis showed large volume of stool in sigmoid colon and rectum with mild colonic and small bowel distension, concerning for ileus vs distal obstruction * Appreciate general surgery consultation * Had water-soluble contrast enema today which showed large amount of stool throughout the colon with gas-filled loops of small bowel * Continue with NG decompression * Gentle IV fluids while NPO * Plan for repeat KUB tomorrow (3) Stercoral colitis: Code(s): K52.89 - Other specified noninfective gastroenteritis and colitis Status: Acute Assessment and Plan: Patient with fecal impaction causing stercoral colitis * Manually disimpacted today * Continues to have bowel movements following Hypaque enema * Continue Cipro and Flagyl (4) Prostate cancer metastatic to multiple sites: Code(s): C61 - Malignant neoplasm of prostate Status: Acute Assessment and Plan: Discovered at last hospitalization 2 weeks prior * Patient had prostate biopsy with Dr. Jessica as an outpatient. Biopsy proven prostate cancer, although those records are not available in this EMR * CT scan showed widespread sclerotic lesions of the bone and lytic lesions of the right sacral ala consistent with metastatic disease * Skeletal survey completed at previous hospitalization * Patient does complain of bone pain. Continue analgesics as needed * Appreciate Oncology consultation * Started on Casodex per Dr. Garcia and will be referred to Radiation Oncology for palliative radiation (5) COVID-19: Code(s): U07.1 - COVID-19 Status: Acute Assessment and Plan: Initial COVID positive 04/17/22 * CXR demonstrates resolving pneumonia * Patient is asymptomatic at this time * Isolation precautions discontinued 05/06 (6) Hyponatremia: Code(s): E87.1 - Hypo-osmolality and hyponatremia Status: Acute Assessment and Plan: Chronic on review of prior labs. Remains consistently at 127 * May be related to malignancy * Montior BMP * Cautious fluid rehydration * Obtain urine sodium (7) Hypertension: Code(s): I10 - Essential (primary) hypertension Status: Acute Assessment and Plan: Blood pressures have been low. Last BP 92/58 * Discontinue amlodipine and lisinopril * Check orthostatics (8) Leukocytosis: Code(s): D72.829 - Elevated white blood cell count, unspecified Status: Acute Assessment [place] Plan: [place] [address] on presentation * Patient reports completing a steroid taper a week ago (or more, history is unclear) * Stercoral colitis suggested on imaging which could contribute to leukocytosis. Continue antibiotics * Patient remains afebrile * Slight improvement today with WBC [id number] * Continue to monitor
--- NOTE | 2022-05-07 16:12 | PM.IMPN ---
Progress Note: A&P Assessment and Plan (1) UGIB (upper gastrointestinal bleed): Code(s): K92.2 - Gastrointestinal hemorrhage, unspecified Status: Acute Assessment and Plan: Patient with episode of blood-streaked stool and coffee-ground emesis Appreciate GI consultation Continue pantoprazole BID Aspirin and Eliquis on hold at this time H&H remaining stable. Slight decline today from baseline which is likely dilutional Will need outpatient EGD and colonoscopy No further episodes of bleeding (2) Bowel obstruction: Code(s): K56.609 - Unspecified intestinal obstruction, unspecified as to partial versus complete obstruction Status: Acute Assessment and Plan: CT of the abdomen/pelvis showed large volume of stool in sigmoid colon and rectum with mild colonic and small bowel distension, concerning for ileus vs distal obstruction Appreciate general surgery consultation Had water-soluble contrast enema today which showed large amount of stool throughout the colon with gas-filled loops of small bowel Continue with NG decompression Gentle IV fluids while NPO Plan for repeat KUB tomorrow (3) Stercoral colitis: Code(s): K52.89 - Other specified noninfective gastroenteritis and colitis Status: Acute Assessment and Plan: Patient with fecal impaction causing stercoral colitis Manually disimpacted today Continues to have bowel movements following Hypaque enema Continue Cipro and Flagyl (4) Prostate cancer metastatic to multiple sites: Code(s): C61 - Malignant neoplasm of prostate Status: Acute Assessment and Plan: Discovered at last hospitalization 2 weeks prior Patient had prostate biopsy with Dr. Jessica as an outpatient. Biopsy proven prostate cancer, although those records are not available in this EMR CT scan showed widespread sclerotic lesions of the bone and lytic lesions of the right sacral ala consistent with metastatic disease Skeletal survey completed at previous hospitalization Patient does complain of bone pain. Continue analgesics as needed Appreciate Oncology consultation Started on Casodex per Dr. Garcia and will be referred to Radiation Oncology for palliative radiation (5) COVID-19: Code(s): U07.1 - COVID-19 Status: Acute Assessment and Plan: Initial COVID positive 04/17/22 CXR demonstrates resolving pneumonia Patient is asymptomatic at this time Isolation precautions discontinued 05/06 (6) Hyponatremia: Code(s): E87.1 - Hypo-osmolality and hyponatremia Status: Acute Assessment and Plan: Chronic on review of prior labs. Remains consistently at 127 May be related to malignancy Montior BMP Cautious fluid rehydration Obtain urine sodium (7) Hypertension: Code(s): I10 - Essential (primary) hypertension Status: Acute Assessment and Plan: Blood pressures have been low. Last BP 92/58 Discontinue amlodipine and lisinopril Check orthostatics (8) Leukocytosis: Code(s): D72.829 - Elevated white blood cell count, unspecified Status: Acute Assessment [place] Plan: [place] [id number] on presentation Patient reports completing a steroid taper a week ago (or more, history is unclear) Stercoral colitis suggested on imaging which could contribute to leukocytosis. Continue antibiotics Patient remains afebrile Slight improvement today with WBC [id number] Continue to monitor (9) Sinus tachycardia: Code(s): R00.0 - Tachycardia, unspecified Status: Acute Assessment and Plan: Persistent issue since last hospitalization 2 weeks ago. Etiology for this is unclear. CTA not able to be completed due to renal function, therefore during last hospitalization he was started on treatment for possible pulmonary embolism given his high risk due to malignancy. However, tachycardia persists TSH is within normal limits Check orthosta
--- NOTE | 2022-05-07 17:23 | WPDGIPROGNO ---
Progress Note: A&P Assessment and Plan (1) Fecal impaction in rectum: Code(s): K56.41 - Fecal impaction Status: Acute Assessment and Plan: manually disimpacted and feeling better XR enema showed no strictures identified and appearances most consistent with constipation and ileus. patient still will need a colonoscopy since never had one and few months ago had + cologuard probably Wednesday (still with ileus and NGT in place) once he can tolerate a bowel prep (2) Bowel obstruction: Code(s): K56.609 - Unspecified intestinal obstruction, unspecified as to partial versus complete obstruction Status: Acute Assessment and Plan: surgery on board better (3) Prostate cancer metastatic to bone: Code(s): C61 - Malignant neoplasm of prostate; C79.51 - Secondary malignant neoplasm of bone Status: Acute Assessment and Plan: follow up with oncology (4) Stercoral colitis: Code(s): K52.89 - Other specified noninfective gastroenteritis and colitis Status: Acute Assessment and Plan: treated (5) Coffee ground emesis: Code(s): K92.0 - Hematemesis Status: Acute Assessment and Plan: on presentation we can also do egd on wednesday ppi for now (6) COVID-19: Code(s): U07.1 - COVID-19 Status: Acute Subjective Date/time seen: 05/07/22 17:23 Interval history: ngt in place, had manual disimpaction of large amount stool. He is comfortable, no more report of coffee ground emesis Review of Systems Review of Systems: All systems reviewed & are unremarkable except as noted in HPI and below Exam Const: General: cooperative, comfortable, no acute distress, alert and awake HENMT: General nose exam: Normal nares present Other: ngt in place Eyes: General: appearance normal, both eyes and all related structures Neck: Neck: supple Resp: Auscultation: diminished lung sounds Other: on oxygen Cardio: Rhythm: regular rhythm GI: GI Palp: Yes Soft to palpation, No Tenderness to palpation present (GI), No Guarding due to palpation present (GI) and No Hernia present Skin: General skin exam: normal color Neuro: Speech: normal speech Psych: Affect: normal affect Objective Data Vital Signs Vital Signs: Vital Signs - 24 hr 05/06/22 18:32 05/06/22 18:23 05/06/22 22:00 Temperature 97.1 F L Pulse Rate 119 H Respiratory Rate 18 Blood Pressure 91/75 L 92/77 L 94/67 L Pulse Oximetry 94 Oxygen Delivery Oxygen Flow Rate 05/06/22 20:00 05/07/22 06:00 05/07/22 08:20 Temperature 96.8 F L Pulse Rate 114 H Respiratory Rate 18 Blood Pressure 103/73 Pulse Oximetry 95 95 Oxygen Delivery Nasal Cannula Nasal Cannula Oxygen Flow Rate 1 1 05/07/22 15:22 05/07/22 16:57 05/07/22 16:57 Temperature 98.0 F Pulse Rate 114 H Respiratory Rate 18 Blood Pressure 92/58 L 100/61 95/74 L Pulse Oximetry 94 Oxygen Delivery Oxygen Flow Rate 05/07/22 16:58 Temperature Pulse Rate Respiratory Rate Blood Pressure 84/36 L Pulse Oximetry Oxygen Delivery Oxygen Flow Rate Intake/Output Intake/Output: Intake & Output 05/04/22 05/05/22 05/06/22 05/07/22 23:59 23:59 23:59 23:59 Intake Total 2600 3550 1700 Output Total 400 1000 600 Balance 2200 2550 1100 Meds/Results Medications: Active Medications Generic Name Dose Route Start Last Admin Trade Name Freq PRN Reason Stop Dose Admin Acetaminophen 650 mg 05/06/22 15:49 Acetaminophen 325 Mg Tablet PO Q4H PRN Pain 1-3 Hydrocodone Bitart/Acetaminophen 1 tab 05/05/22 20:55 05/06/22 14:23 Hydrocodone/Acetaminophen (*Crx) 5-325 Mg Tablet PO 1 tab Q8H PRN Administration pain Bicalutamide 50 mg 05/08/22 09:00 Bicalutamide (*Chemo) 50 Mg Tablet PO QAM [facility] Hydralazine HCl 10 mg 05/05/22 13:29 Hydralazine Hcl 20 Mg/Ml Vial IV PUSH Q8H PRN Blood Pressure - High Hydromorphone
[2022-05-07] MEDS: PHENOL/SOD PHENO SPRAY CHERRY (*BKC) 1 SPRAY MUCOUS MEM (17:52)
[2022-05-07 18:48] LABS: Creatinine Urine 92.2 mg/dL
[2022-05-07 19:01] LABS: Sodium Urine Random 21 meq/L
[2022-05-08] MEDS: metroNIDAZOLE 500 MG/ISO 100ML 500 MG/100 ML BAG 100 MG IVPB ×2 (03:27→09:17)
[2022-05-08] MEDS: LACTATED RINGERS 1,000 ML 100 ML IV CONT (05:16)
[2022-05-08 06:00] VITALS: BP 116/73; PULSE 117; RESP 18; TEMP 36.9; O2SAT 90
[2022-05-08] MEDS: CIPROFLOXACIN 400 MG/D5W 200ML 200 ML 200 MG IVPB (06:22)
[2022-05-08 06:23] LABS: Hematocrit 35.4 % (42.0-52.0); Hemoglobin 11.8 g/dL (14.0-18.0); Mean Corpuscular HGB Conc 33.3 g/dl (32-36); Mean Corpuscular Hemoglobin 31.6 pg (26-34); Mean Corpuscular Volume 94.7 fl (80-100); Mean Platelet Volume 10.1 fl (7.4-10.4); Platelet Count Result 194 k/mm3 (150-375); Red Blood Count 3.74 M/mm3 (4.6-6.20); Red Cell Distribution Width 13.3 % (11.5-14.5)
[2022-05-08 06:28] LABS: Anion Gap 4 mmol/L (8-16); Blood Urea Nitrogen 34 mg/dL (9-20); Calcium 7.9 mg/dL (8.4-10.2); Carbon Dioxide 30 mmol/L (22-30); Chloride 99 mmol/L (98-107); Estimated CRCL calculation 58 ml/min; Estimated Glomerular Filt Rate > 60; Glucose 86 mg/dL (65-110); Sodium 133 mmol/L (137-145)
--- NOTE | 2022-05-08 07:49 | PM.PNGS ---
Progress Note: A&P Assessment and Plan (1) Fecal impaction in rectum: Code(s): K56.41 - Fecal impaction Status: Acute Assessment and Plan: resolved clinically and by imaging. Suspect his ileus has resolved as well. Will DC NG tube and start on soft diet. He is on MiraLax twice a day per Dr. Mendez. Please call if can be of further assistance. We will sign off. (2) Stercoral colitis: Code(s): K52.89 - Other specified noninfective gastroenteritis and colitis Status: Acute Assessment and Plan: Due to fecal impaction. This has resolved. If on antibiotics for this reason, can be discontinued. Subjective Subjective Date/Time Seen: 05/08/22 07:49 Patient reports: feels better, pain is less ( no abdominal pain), bowel movement ( multiple) and afebrile Interval history: no abdominal pain. Patient very hungry. Review of Systems Review of Systems: All systems reviewed & are unremarkable except as noted in HPI and below ENT: Denies headache(s) Cardiovascular: Cardiovascular: Denies chest pain and Denies dyspnea Respiratory: Respiratory: Denies cough and Denies dyspnea Gastrointestinal: Gastrointestinal: Reports as per HPI Exam Const: General: comfortable and no acute distress; No confusion GI: Inspection: obesity ( Protuberant but not really distended) GI Palp: Yes Soft to palpation, No Tenderness to palpation present (GI), No Guarding due to palpation present (GI), No Hernia present, No Palpable mass present and No Rebound tenderness present Auscultation: normal bowel sounds Neuro: General: patient oriented x3, no focal motor deficits and No confusion Extrem: General: no calf tenderness and no edema Psych: Affect: normal affect Insight: Good insight present (Psych) Judgement: Good judgement present (Psych) Objective Data Vital Signs Vital Signs: Vital Signs - 24 hr 05/07/22 08:20 05/07/22 15:22 05/07/22 16:57 Temperature 36.7 C Pulse Rate 114 H Respiratory Rate 18 Blood Pressure 92/58 L 100/61 Pulse Oximetry 95 94 Oxygen Delivery Nasal Cannula Oxygen Flow Rate 1 05/07/22 16:57 05/07/22 16:58 05/07/22 15:45 Temperature Pulse Rate Respiratory Rate Blood Pressure 95/74 L 84/36 L Pulse Oximetry 90 Oxygen Delivery Room Air Oxygen Flow Rate 05/07/22 20:00 05/07/22 21:20 05/07/22 21:20 Temperature 36.3 C L 36.8 C 36.8 C Pulse Rate 122 H 46 L 143 H Respiratory Rate 18 16 16 Blood Pressure 99/70 L 116/79 102/75 Pulse Oximetry 90 95 97 Oxygen Delivery Oxygen Flow Rate 05/07/22 20:00 05/07/22 22:00 05/08/22 06:00 Temperature 36.8 C 36.9 C Pulse Rate 117 H 117 H Respiratory Rate 16 18 Blood Pressure 102/75 116/73 Pulse Oximetry 95 97 90 Oxygen Delivery Room Air Oxygen Flow Rate Intake/Output Intake/Output: Intake & Output 05/05/22 05/06/22 05/07/22 05/08/22 23:59 23:59 23:59 23:59 Intake Total 2600 3550 1860 1360 Output Total 400 1000 750 450 Balance 2200 2550 1110 910 Meds/Results Medications: Active Medications Generic Name Dose Route Start Last Admin Trade Name Freq PRN Reason Stop Dose Admin Acetaminophen 650 mg 05/06/22 15:49 Acetaminophen 325 Mg Tablet PO Q4H PRN Pain 1-3 Hydrocodone Bitart/Acetaminophen 1 tab 05/05/22 20:55 05/06/22 14:23 Hydrocodone/Acetaminophen (*Crx) 5-325 Mg Tablet PO 1 tab Q8H PRN Administration pain Bicalutamide 50 mg 05/08/22 09:00 Bicalutamide (*Chemo) 50 Mg Tablet PO QAM [facility] Hydralazine HCl 10 mg 05/05/22 13:29 Hydralazine Hcl 20 Mg/Ml Vial IV PUSH Q8H PRN Blood Pressure - High Hydromorphone HCl 0.5 mg 05/06/22 21:26 05/06/22 21:41 Hydromorphone Hcl Inj (*Crx) 1 Mg/Ml Syr IV PUSH 0.5 mg Q4H PRN Administration Pain Rated 7-10 Lactated Ringer's 1,000 mls @ 60 mls/hr 05/05/22 13:35 05/08/22 05:16 Lr - Lactated Ringers Iv IV CONT 100 mls/hr .[id number] [facility]
[2022-05-08 08:00] VITALS: O2SAT 90
[2022-05-08] MEDS: MAGNESIUM CITRATE 300 ML BTL 150 ML PO (09:16)
[2022-05-08] MEDS: BICALUTAMIDE (*CHEMO) 50 MG TABLET PO (09:16)
[2022-05-08] MEDS: TAMSULOSIN HCL 0.4 MG CAPSULE PO (09:17)
[2022-05-08 14:00] VITALS: BP 100/64; PULSE 123; RESP 22; TEMP 36.6; O2SAT 89
--- NOTE | 2022-05-08 15:21 | WPDGIPROGNO ---
Progress Note: A&P Assessment and Plan (1) Fecal impaction in rectum: Code(s): K56.41 - Fecal impaction Status: Acute Assessment and Plan: manually disimpacted and feeling better XR enema showed no strictures identified and appearances most consistent with constipation and ileus. patient still will need a colonoscopy since never had one and few months ago had + cologuard Now that ileus is resolving he is eating, he does not wish to stay here until Wednesday (2) Bowel obstruction: Code(s): K56.609 - Unspecified intestinal obstruction, unspecified as to partial versus complete obstruction Status: Acute Assessment and Plan: surgery has signed off as it does not appear that he has a mechanical obstruction. Probably had an ileus and or pseudo-obstruction secondary to his impaction which has resolved. He is grateful for having had this impaction. (3) Prostate cancer metastatic to bone: Code(s): C61 - Malignant neoplasm of prostate; C79.51 - Secondary malignant neoplasm of bone Status: Acute Assessment and Plan: follow up with oncology . He admits that he postponed getting follow-up with a urologist as he was supposed to have done several months before he did so (4) Stercoral colitis: Code(s): K52.89 - Other specified noninfective gastroenteritis and colitis Status: Acute Assessment and Plan: which should resolve spontaneously with disimpaction (5) Coffee ground emesis: Code(s): K92.0 - Hematemesis Status: Acute Assessment and Plan: he is on PPI. With no further vomiting he should be able to go home. Subjective Date/time seen: 05/08/22 15:21 patient states that he is eating well and not having any abdominal pain. He is having bowel movements, adding that he is still passing contrast from yesterday's water soluble contrast enema. He is denying any abdominal pain at this time. He feels that he should go home and come back as an outpatient for further testing. Surgery has signed off. Dr. Mendez had been considering performing EGD and colonoscopy on Wednesday. He could probably be discharged and come back as an outpatient. Review of Systems Review of Systems: All systems reviewed & are unremarkable except as noted in HPI and below Exam Const: General: alert Orientation/consciousness: patient oriented x3 Resp: Auscultation: clear to auscultation bilaterally Cardio: Rhythm: regular rhythm GI: GI Palp: Yes Soft to palpation and No Tenderness to palpation present (GI) Neuro: General: patient oriented x3 Objective Data Vital Signs Vital Signs: Vital Signs - 24 hr 05/07/22 15:22 05/07/22 16:57 05/07/22 16:57 Temperature 36.7 C Pulse Rate 114 H Respiratory Rate 18 Blood Pressure 92/58 L 100/61 95/74 L Pulse Oximetry 94 Oxygen Delivery 05/07/22 16:58 05/07/22 15:45 05/07/22 20:00 Temperature 36.3 C L Pulse Rate 122 H Respiratory Rate 18 Blood Pressure 84/36 L 99/70 L Pulse Oximetry 90 90 Oxygen Delivery Room Air 05/07/22 21:20 05/07/22 21:20 05/07/22 20:00 Temperature 36.8 C 36.8 C Pulse Rate 46 L 143 H Respiratory Rate 16 16 Blood Pressure 116/79 102/75 Pulse Oximetry 95 97 95 Oxygen Delivery Room Air 05/07/22 22:00 05/08/22 06:00 05/08/22 08:00 Temperature 36.8 C 36.9 C Pulse Rate 117 H 117 H Respiratory Rate 16 18 Blood Pressure 102/75 116/73 Pulse Oximetry 97 90 90 Oxygen Delivery Room Air 05/08/22 14:00 Temperature 36.6 C Pulse Rate 123 H Respiratory Rate 22 H Blood Pressure 100/64 Pulse Oximetry 89 L Oxygen Delivery Intake/Output Intake/Output: Intake & Output 05/05/22 05/06/22 05/07/22 05/08/22 23:59 23:59 23:59 23:59 Intake Total 2600 3550 1860 1840 Output Total 400 1000 750 450 Balance 2200 2550 1110 1390 Meds/Results Medications: Active Medications Generic Name Dose Route Start Last Admin Trade Name Freq PRN Reason S
--- NOTE | 2022-05-08 15:39 | P.PNIM_ITS ---
Progress Note: A&P Assessment and Plan (1) UGIB (upper gastrointestinal bleed): Code(s): K92.2 - Gastrointestinal hemorrhage, unspecified Status: Acute Assessment and Plan: Patient with episode of blood-streaked stool and coffee-ground emesis * Appreciate GI consultation * Continue pantoprazole BID * H&H remaining stable. Slight decline today from baseline which is likely dilutional * Will need outpatient EGD and colonoscopy * No further episodes of bleeding (2) Bowel obstruction: Code(s): K56.609 - Unspecified intestinal obstruction, unspecified as to partial versus complete obstruction Status: Acute Assessment and Plan: CT of the abdomen/pelvis showed large volume of stool in sigmoid colon and rectum with mild colonic and small bowel distension, concerning for ileus vs distal obstruction * Appreciate general surgery consultation * This was felt to be secondary to fecal impaction which has resolved * NG tube removed today * Patient tolerating low-fiber diet (3) Stercoral colitis: Code(s): K52.89 - Other specified noninfective gastroenteritis and colitis Status: Acute Assessment and Plan: Patient with fecal impaction causing stercoral colitis * Impaction has resolved * Was on Cipro and Flagyl, will discontinue at this time given resolution of impaction. Discussed with ID PharmD (4) Prostate cancer metastatic to multiple sites: Code(s): C61 - Malignant neoplasm of prostate Status: Acute Assessment and Plan: Discovered at last hospitalization 2 weeks prior * Patient had prostate biopsy with Dr. Jessica as an outpatient. Biopsy proven p rostate cancer, although those records are not available in this EMR * CT scan showed widespread sclerotic lesions of the bone and lytic lesions of the right sacral ala consistent with metastatic disease * Skeletal survey completed at previous hospitalization * Patient does complain of bone pain. Continue analgesics as needed * Appreciate Oncology consultation * Started on Casodex per Dr. Garcia and will be referred to Radiation Oncology for palliative radiation (5) Orthostatic hypotension: Code(s): I95.1 - Orthostatic hypotension Status: Acute Assessment and Plan: Noted to be orthostatic on evaluation * Will administer IV fluid bolus * Tony hose * Fall precautions * Discontinue amlodipine, lisinopril, hydrochlorothiazide * Continue to monitor orthostatics (6) Sinus tachycardia: Code(s): R00.0 - Tachycardia, unspecified Status: Acute Assessment and Plan: Persistent issue since last hospitalization 2 weeks ago. * Etiology for this is unclear. * CTA not able to be completed due to renal function, therefore during last hospitalization he was started on treatment for possible pulmonary embolism given his high risk due to malignancy. However, tachycardia persists * TSH is within normal limits * Patient is orthostatic which could contribute to tachycardia * Patient endorses anxiety which also could contribute * Will monitor overnight on telemetry for closer monitoring (7) COVID-19: Code(s): U07.1 - COVID-19 Status: Acute Assessment and Plan: Initial COVID positive 04/17/22 * CXR demonstrates resolving pneumonia * Patient is asymptomatic at this time * Isolation precautions discontinued 05/06 (8) Hyponatremia: Code(s): E87.1 - Hypo-osmolality and hyponatremia Status: Acute Assessment and Plan: Chronic on review of prior
--- NOTE | 2022-05-08 15:39 | PM.IMPN ---
Progress Note: A&P Assessment and Plan (1) UGIB (upper gastrointestinal bleed): Code(s): K92.2 - Gastrointestinal hemorrhage, unspecified Status: Acute Assessment and Plan: Patient with episode of blood-streaked stool and coffee-ground emesis Appreciate GI consultation Continue pantoprazole BID H&H remaining stable. Slight decline today from baseline which is likely dilutional Will need outpatient EGD and colonoscopy No further episodes of bleeding (2) Bowel obstruction: Code(s): K56.609 - Unspecified intestinal obstruction, unspecified as to partial versus complete obstruction Status: Acute Assessment and Plan: CT of the abdomen/pelvis showed large volume of stool in sigmoid colon and rectum with mild colonic and small bowel distension, concerning for ileus vs distal obstruction Appreciate general surgery consultation This was felt to be secondary to fecal impaction which has resolved NG tube removed today Patient tolerating low-fiber diet (3) Stercoral colitis: Code(s): K52.89 - Other specified noninfective gastroenteritis and colitis Status: Acute Assessment and Plan: Patient with fecal impaction causing stercoral colitis Impaction has resolved Was on Cipro and Flagyl, will discontinue at this time given resolution of impaction. Discussed with ID PharmD (4) Prostate cancer metastatic to multiple sites: Code(s): C61 - Malignant neoplasm of prostate Status: Acute Assessment and Plan: Discovered at last hospitalization 2 weeks prior Patient had prostate biopsy with Dr. Jessica as an outpatient. Biopsy proven prostate cancer, although those records are not available in this EMR CT scan showed widespread sclerotic lesions of the bone and lytic lesions of the right sacral ala consistent with metastatic disease Skeletal survey completed at previous hospitalization Patient does complain of bone pain. Continue analgesics as needed Appreciate Oncology consultation Started on Casodex per Dr. Garcia and will be referred to Radiation Oncology for palliative radiation (5) Orthostatic hypotension: Code(s): I95.1 - Orthostatic hypotension Status: Acute Assessment and Plan: Noted to be orthostatic on evaluation Will administer IV fluid bolus Tony hose Fall precautions Discontinue amlodipine, lisinopril, hydrochlorothiazide Continue to monitor orthostatics (6) Sinus tachycardia: Code(s): R00.0 - Tachycardia, unspecified Status: Acute Assessment and Plan: Persistent issue since last hospitalization 2 weeks ago. Etiology for this is unclear. CTA not able to be completed due to renal function, therefore during last hospitalization he was started on treatment for possible pulmonary embolism given his high risk due to malignancy. However, tachycardia persists TSH is within normal limits Patient is orthostatic which could contribute to tachycardia Patient endorses anxiety which also could contribute Will monitor overnight on telemetry for closer monitoring (7) COVID-19: Code(s): U07.1 - COVID-19 Status: Acute Assessment and Plan: Initial COVID positive 04/17/22 CXR demonstrates resolving pneumonia Patient is asymptomatic at this time Isolation precautions discontinued 05/06 (8) Hyponatremia: Code(s): E87.1 - Hypo-osmolality and hyponatremia Status: Acute Assessment and Plan: Chronic on review of prior labs. Improved today at 133 May be related to malignancy Montior BMP (9) Leukocytosis: Code(s): D72.829 - Elevated white blood cell count, unspecified Status: Acute Assessment [place]: [place] [id number] on presentation Patient reports completing a steroid taper a week ago (or more, history is unclear) Stercoral colitis suggested on imaging which could contribute to leukocytosis. Patient remains afebrile ig
[2022-05-08] MEDS: PANTOPRAZOLE 40 MG TABLET PO (17:16)
[2022-05-08] MEDS: POTASSIUM CHLORIDE 20 MEQ TABLET 40 MEQ PO (17:16)
[2022-05-08] MEDS: SODIUM CHLORIDE 0.9% IV 500 ML 250 ML IV CONT (17:18)
[2022-05-08] MEDS: APIXABAN 5 MG TABLET PO (17:19)
[2022-05-08 20:00] VITALS: PULSE 121
--- NOTE | 2022-05-08 21:10 | PC.NURSE ---
Dr. Goetz returned call r/t continuous stool concerns. Order received to insert a fecal containment system, however, patient refused at this time. Risks and benefits explained to patient.
[2022-05-08 22:00] VITALS: BP 119/69; PULSE 120; RESP 18; TEMP 36.8; O2SAT 91
[2022-05-09] VITALS (13 sets, daily range): BP systolic 106–132; BP diastolic 73–84; PULSE 111–135; RESP 16–18; TEMP 36.6–37.4; O2SAT 91–96
[2022-05-09 06:57] LABS: Hematocrit 35.4 % (42.0-52.0); Hemoglobin 11.9 g/dL (14.0-18.0); Mean Corpuscular HGB Conc 33.6 g/dl (32-36); Mean Corpuscular Hemoglobin 31.9 pg (26-34); Mean Corpuscular Volume 94.9 fl (80-100); Mean Platelet Volume 9.9 fl (7.4-10.4); Platelet Count Result 177 k/mm3 (150-375); Red Blood Count 3.73 M/mm3 (4.6-6.20); Red Cell Distribution Width 13.4 % (11.5-14.5); White Blood Count 17.3 K/mm3 (4.5-10.0)
[2022-05-09 07:11] LABS: Anion Gap 2 mmol/L (8-16); Blood Urea Nitrogen 29 mg/dL (9-20); Calcium 8.3 mg/dL (8.4-10.2); Carbon Dioxide 29 mmol/L (22-30); Chloride 100 mmol/L (98-107); Estimated CRCL calculation 72 ml/min; Estimated Glomerular Filt Rate > 60; Glucose 98 mg/dL (65-110); Potassium 3.2 mmol/L (3.4-5.0); Sodium 131 mmol/L (137-145)
[2022-05-09] MEDS: BICALUTAMIDE (*CHEMO) 50 MG TABLET PO (08:41)
[2022-05-09] MEDS: APIXABAN 5 MG TABLET PO ×2 (08:41→17:34)
[2022-05-09] MEDS: TAMSULOSIN HCL 0.4 MG CAPSULE PO (08:41)
[2022-05-09] MEDS: PANTOPRAZOLE 40 MG TABLET PO (08:41)
[2022-05-09] MEDS: POTASSIUM CHLORIDE 20 MEQ TABLET 40 MEQ PO (10:25)
[2022-05-09] MEDS: LORazepam (*CRX) 0.5 MG TABLET PO (10:41)
--- NOTE | 2022-05-09 13:48 | P.PNIM_ITS ---
Progress Note: A&P Assessment and Plan (1) UGIB (upper gastrointestinal bleed): Code(s): K92.2 - Gastrointestinal hemorrhage, unspecified Status: Acute Assessment and Plan: Patient with episode of blood-streaked stool and coffee-ground emesis * Appreciate GI consultation * Continue pantoprazole BID * H&H remaining stable * Will need outpatient EGD and colonoscopy * No further episodes of bleeding (2) Bowel obstruction: Code(s): K56.609 - Unspecified intestinal obstruction, unspecified as to partial versus complete obstruction Status: Resolved Assessment and Plan: Resolved. CT of the abdomen/pelvis showed large volume of stool in sigmoid colon and rectum with mild colonic and small bowel distension, concerning for ileus vs distal obstruction * Appreciate general surgery consultation * This was felt to be secondary to fecal impaction which has resolved * NG tube removed 05/08 * Patient tolerating low-fiber diet (3) Stercoral colitis: Code(s): K52.89 - Other specified noninfective gastroenteritis and colitis Status: Acute Assessment and Plan: Patient with fecal impaction causing stercoral colitis * Impaction has resolved * Treated with Cipro and Flagyl, discontinued on 05/08 given resolution of impaction. Discussed with ID PharmD (4) Sinus tachycardia: Code(s): R00.0 - Tachycardia, unspecified Status: Acute Assessment and Plan: Persistent issue since last hospitalization 2 weeks ago. * Etiology for this is unclear. * CTA not able to be completed due to renal function, therefore during last hospitalization he was started on treatment for possible pulmonary embolism given his high risk due to malignancy. However, tachycardia persists * TSH is within normal limits * May have been related to orthostasis, however orthostatics negative today and remains tachycardic * Considered anxiety as etiololgy, however today received 0.5 p.o. lorazepam with no change in heart rate * Review of telemetry demonstrates persistent sinus tachycardia with heart rate 105-135 * Will begin p.o. diltiazem 30 mg q8h, with parameters for blood pressure. Monitor BP trends very closely with this medication * Continue to monitor on telemetry (5) Prostate cancer metastatic to multiple sites: Code(s): C61 - Malignant neoplasm of prostate Status: Acute Assessment and Plan: Discovered at last hospitalization 2 weeks prior * Patient had prostate biopsy with Dr. Jessica as an outpatient. Biopsy proven prostate cancer, although those records are not available in this EMR * CT scan showed widespread sclerotic lesions of the bone and lytic lesions of the right sacral ala consistent with metastatic disease * Skeletal survey completed at previous hospitalization * Patient does complain of bone pain. Continue analgesics as needed * Appreciate Oncology consultation * Started on Casodex per Dr. Garcia and will be referred to Radiation Oncology for palliative radiation (6) Orthostatic hypotension: Code(s): I95.1 - Orthostatic hypotension Status: Acute Assessment and Plan: Noted to be orthostatic on evaluation * Received IV fluid bolus * Continue Tony hose * Fall precautions * amlodipine, lisinopril, hydrochlorothiazide discontinued * Repeat orthostatic vital signs today were negative (7) COVID-19: Code(s): U07.1 - COVID-19 Status: Acute Assessment and Plan: Initial COVID positive 04/17/22 * CXR demonstrates resolving pneumonia
--- NOTE | 2022-05-09 13:48 | PM.IMPN ---
Progress Note: A&P Assessment and Plan (1) UGIB (upper gastrointestinal bleed): Code(s): K92.2 - Gastrointestinal hemorrhage, unspecified Status: Acute Assessment and Plan: Patient with episode of blood-streaked stool and coffee-ground emesis Appreciate GI consultation Continue pantoprazole BID H&H remaining stable Will need outpatient EGD and colonoscopy No further episodes of bleeding (2) Bowel obstruction: Code(s): K56.609 - Unspecified intestinal obstruction, unspecified as to partial versus complete obstruction Status: Resolved Assessment and Plan: Resolved. CT of the abdomen/pelvis showed large volume of stool in sigmoid colon and rectum with mild colonic and small bowel distension, concerning for ileus vs distal obstruction Appreciate general surgery consultation This was felt to be secondary to fecal impaction which has resolved NG tube removed 05/08 Patient tolerating low-fiber diet (3) Stercoral colitis: Code(s): K52.89 - Other specified noninfective gastroenteritis and colitis Status: Acute Assessment and Plan: Patient with fecal impaction causing stercoral colitis Impaction has resolved Treated with Cipro and Flagyl, discontinued on 05/08 given resolution of impaction. Discussed with ID PharmD (4) Sinus tachycardia: Code(s): R00.0 - Tachycardia, unspecified Status: Acute Assessment and Plan: Persistent issue since last hospitalization 2 weeks ago. Etiology for this is unclear. CTA not able to be completed due to renal function, therefore during last hospitalization he was started on treatment for possible pulmonary embolism given his high risk due to malignancy. However, tachycardia persists TSH is within normal limits May have been related to orthostasis, however orthostatics negative today and remains tachycardic Considered anxiety as etiololgy, however today received 0.5 p.o. lorazepam with no change in heart rate Review of telemetry demonstrates persistent sinus tachycardia with heart rate 105-135 Will begin p.o. diltiazem 30 mg q8h, with parameters for blood pressure. Monitor BP trends very closely with this medication Continue to monitor on telemetry (5) Prostate cancer metastatic to multiple sites: Code(s): C61 - Malignant neoplasm of prostate Status: Acute Assessment and Plan: Discovered at last hospitalization 2 weeks prior Patient had prostate biopsy with Dr. Jessica as an outpatient. Biopsy proven prostate cancer, although those records are not available in this EMR CT scan showed widespread sclerotic lesions of the bone and lytic lesions of the right sacral ala consistent with metastatic disease Skeletal survey completed at previous hospitalization Patient does complain of bone pain. Continue analgesics as needed Appreciate Oncology consultation Started on Casodex per Dr. Garcia and will be referred to Radiation Oncology for palliative radiation (6) Orthostatic hypotension: Code(s): I95.1 - Orthostatic hypotension Status: Acute Assessment and Plan: Noted to be orthostatic on evaluation Received IV fluid bolus Continue Tony hose Fall precautions amlodipine, lisinopril, hydrochlorothiazide discontinued Repeat orthostatic vital signs today were negative (7) COVID-19: Code(s): U07.1 - COVID-19 Status: Acute Assessment and Plan: Initial COVID positive 04/17/22 CXR demonstrates resolving pneumonia Patient is asymptomatic at this time Isolation precautions discontinued 05/06 (8) Hyponatremia: Code(s): E87.1 - Hypo-osmolality and hyponatremia Status: Acute Assessment and Plan: Chronic on review of prior labs. Sodium 131 today May be related to malignancy Monitor BMP (9) Leukocytosis: Code(s): D72.829 - Elevated white blood cell count, unspecified Status: Acute Assessment and Plan
[2022-05-09] MEDS: dilTIAZem HCL 30 MG TABLET PO ×2 (14:32→21:31)
[2022-05-09] MEDS: HYDROcodone/acetaminophen (*CRX) 5-325 MG TABLET 1 TAB PO (20:45)
[2022-05-10] VITALS: PULSE 99
[2022-05-10 04:00] VITALS: PULSE 104
[2022-05-10] MEDS: dilTIAZem HCL 30 MG TABLET PO ×2 (05:23→13:07)
[2022-05-10 06:00] VITALS: BP 123/76; PULSE 104; RESP 18; TEMP 36.5; O2SAT 95
[2022-05-10 06:42] LABS: Hematocrit 36.8 % (42.0-52.0); Hemoglobin 12.8 g/dL (14.0-18.0); Mean Corpuscular HGB Conc 34.8 g/dl (32-36); Mean Corpuscular Hemoglobin 32.8 pg (26-34); Mean Corpuscular Volume 94.4 fl (80-100); Mean Platelet Volume 10.3 fl (7.4-10.4); Platelet Count Result 170 k/mm3 (150-375); Red Cell Distribution Width 13.4 % (11.5-14.5); White Blood Count 17.9 K/mm3 (4.5-10.0)
[2022-05-10 06:55] LABS: Anion Gap 2 mmol/L (8-16); Blood Urea Nitrogen 24 mg/dL (9-20); Calcium 8.3 mg/dL (8.4-10.2); Carbon Dioxide 26 mmol/L (22-30); Chloride 101 mmol/L (98-107); Estimated CRCL calculation 81 ml/min; Estimated Glomerular Filt Rate > 60; Glucose 99 mg/dL (65-110); Potassium 3.6 mmol/L (3.4-5.0); Sodium 129 mmol/L (137-145)
[2022-05-10 08:00] VITALS: PULSE 106
[2022-05-10] MEDS: TAMSULOSIN HCL 0.4 MG CAPSULE PO (08:49)
[2022-05-10] MEDS: APIXABAN 5 MG TABLET PO (08:49)
[2022-05-10] MEDS: BICALUTAMIDE (*CHEMO) 50 MG TABLET PO (08:49)
[2022-05-10] MEDS: PANTOPRAZOLE 40 MG TABLET PO (08:49)
[2022-05-10] MEDS: HYDROcodone/acetaminophen (*CRX) 5-325 MG TABLET 1 TAB PO (10:59)
[2022-05-10 12:00] VITALS: PULSE 112
[2022-05-10 12:44] LABS: Sodium 130 mmol/L (137-145)
--- NOTE | 2022-05-10 13:59 | P.DS_ITS ---
DS: Admitting Diagnosis Discharge Date 05/10/2022 Admitting Diagnosis Coffee-ground emesis DS: Discharge Diagnosis Discharge Diagnosis (1) UGIB (upper gastrointestinal bleed): Code(s): K92.2 - Gastrointestinal hemorrhage, unspecified Status: Acute Assessment and Plan: Patient with episode of blood-streaked stool and coffee-ground emesis * He was seen in consultation by GI * No episodes of bleeding during admission. * Continue pantoprazole 40 mg daily * H&H remained stable * Will follow up for outpatient EGD and colonoscopy (2) Bowel obstruction: Code(s): K56.609 - Unspecified intestinal obstruction, unspecified as to partial versus complete obstruction Status: Resolved Assessment and Plan: Resolved. CT of the abdomen/pelvis showed large volume of stool in sigmoid colon and rectum with mild colonic and small bowel distension, concerning for ileus vs distal obstruction * Seen in consultation by general surgery * This was felt to be secondary to fecal impaction which resolved * NG tube removed 05/08 * Diet advanced and patient was able to tolerate low-fiber diet (3) Stercoral colitis: Code(s): K52.89 - Other specified noninfective gastroenteritis and colitis Status: Acute Assessment and Plan: Patient with fecal impaction causing stercoral colitis * Impaction resolved following manual disimpaction * Received Cipro and Flagyl which was discontinued on 05/08 given resolution of impaction. Discussed with ID PharmD (4) Sinus tachycardia: Code(s): R00.0 - Tachycardia, unspecified Status: Acute Assessment and Plan: Persistent issue since last hospitalization 2 weeks ago. * Etiology not entirely clear. * During last hospitalization, CTA not able to be completed due to HILDA, therefore he was treated empirically for suspected pulmonary embolism given his high risk due to malignancy. However, tachycardia persisted * TSH is within normal limits * May have been related to orthostasis, however subsequent orthostatics negative and remained tachycardic * Considered anxiety as etiololgy, however no change in heart rate with anxiolytics * Review of telemetry demonstrates persistent sinus tachycardia with heart rate 105-135 * Started p.o. diltiazem 30 mg q8h with parameters for blood pressure. Patient still tachy but remained 95-105, demonstrating improvement with this. BP stable. Patient will continue diltiazem while monitoring BP at home and will follow up with PCP for close monitoring. (5) Prostate cancer metastatic to multiple sites: Code(s): C61 - Malignant neoplasm of prostate Status: Acute Assessment and Plan: Discovered at last hospitalization 2 weeks prior * Patient had prostate biopsy with Dr. Jessica as an outpatient. Biopsy proven prostate cancer, although those records not available for review in this EMR * CT scan showed widespread sclerotic lesions of the bone and lytic lesions of the right sacral ala consistent with metastatic disease * Skeletal survey completed at previous hospitalization * Patient complained of bone pain which improved with [place]. Continue analgesics as needed * Seen in consultation by Oncology * Started on Casodex per Dr. Garcia and will follow up outpatient in 1 week. At that time will be referred to Radiation Oncology for palliative radiation (6) Orthostatic hypotension: Code(s): I95.1 - Orthostatic hypotension Status: Acute Assessment and Plan: Noted to be orthostatic on evaluation * Patient adequately [place]
--- NOTE | 2022-05-10 13:59 | PM.DS ---
DS: Admitting Diagnosis Discharge Date 05/10/2022 Admitting Diagnosis Coffee-ground emesis DS: Discharge Diagnosis Discharge Diagnosis (1) UGIB (upper gastrointestinal bleed): Code(s): K92.2 - Gastrointestinal hemorrhage, unspecified Status: Acute Assessment and Plan: Patient with episode of blood-streaked stool and coffee-ground emesis He was seen in consultation by GI No episodes of bleeding during admission. Continue pantoprazole 40 mg daily H&H remained stable Will follow up for outpatient EGD and colonoscopy (2) Bowel obstruction: Code(s): K56.609 - Unspecified intestinal obstruction, unspecified as to partial versus complete obstruction Status: Resolved Assessment and Plan: Resolved. CT of the abdomen/pelvis showed large volume of stool in sigmoid colon and rectum with mild colonic and small bowel distension, concerning for ileus vs distal obstruction Seen in consultation by general surgery This was felt to be secondary to fecal impaction which resolved NG tube removed 05/08 Diet advanced and patient was able to tolerate low-fiber diet (3) Stercoral colitis: Code(s): K52.89 - Other specified noninfective gastroenteritis and colitis Status: Acute Assessment and Plan: Patient with fecal impaction causing stercoral colitis Impaction resolved following manual disimpaction Received Cipro and Flagyl which was discontinued on 05/08 given resolution of impaction. Discussed with ID PharmD (4) Sinus tachycardia: Code(s): R00.0 - Tachycardia, unspecified Status: Acute Assessment and Plan: Persistent issue since last hospitalization 2 weeks ago. Etiology not entirely clear. During last hospitalization, CTA not able to be completed due to HILDA, therefore he was treated empirically for suspected pulmonary embolism given his high risk due to malignancy. However, tachycardia persisted TSH is within normal limits May have been related to orthostasis, however subsequent orthostatics negative and remained tachycardic Considered anxiety as etiololgy, however no change in heart rate with anxiolytics Review of telemetry demonstrates persistent sinus tachycardia with heart rate 105-135 Started p.o. diltiazem 30 mg q8h with parameters for blood pressure. Patient still tachy but remained 95-105, demonstrating improvement with this. BP stable. Patient will continue diltiazem while monitoring BP at home and will follow up with PCP for close monitoring. (5) Prostate cancer metastatic to multiple sites: Code(s): C61 - Malignant neoplasm of prostate Status: Acute Assessment and Plan: Discovered at last hospitalization 2 weeks prior Patient had prostate biopsy with Dr. Jessica as an outpatient. Biopsy proven prostate cancer, although those records not available for review in this EMR CT scan showed widespread sclerotic lesions of the bone and lytic lesions of the right sacral ala consistent with metastatic disease Skeletal survey completed at previous hospitalization Patient complained of bone pain which improved with [place]. Continue analgesics as needed Seen in consultation by Oncology Started on Casodex per Dr. Garcia and will follow up outpatient in 1 week. At that time will be referred to Radiation Oncology for palliative radiation (6) Orthostatic hypotension: Code(s): I95.1 - Orthostatic hypotension Status: Acute Assessment and Plan: Noted to be orthostatic on evaluation Patient adequately rehydrated Tony hose applied PO antihypertensives held. Orthostatic vital signs improved and he was not orthostatic on subsequent evaluations Fall precautions discussed Amlodipine, lisinopril, hydrochlorothiazide discontinued (7) COVID-19: Code(s): U07.1 - COVID-19 Status: Acute Assessment and Plan: Initial COVID positive 04/17/22 CXR showed resolving pneumonia Patient was asympt
== END 2022-05-10 15:32 | disposition home or self-care (01) | DRG 391 ==
LOC: ANHED 12:15 → ANH3MEDSUR 13:24
PROVIDERS: Nurse Practitioner; Physician Assistant; Admitting Provider Student in an Organized Health Care Education/Training Program; Emergency Provider Emergency Medicine; PCP Internal Medicine; Visit Provider Family Medicine
DX: K52.89 Other specified noninfective gastroenteritis and colitis (principal); J12.82 Pneumonia due to coronavirus disease 2019; U07.1 COVID-19; K92.0 Hematemesis; C61 Malignant neoplasm of prostate; C79.51 Secondary malignant neoplasm of bone; G89.3 Neoplasm related pain (acute) (chronic); E87.1 Hypo-osmolality and hyponatremia; K56.7 Ileus, unspecified; D72.829 Elevated white blood cell count, unspecified; I95.1 Orthostatic hypotension; I10 Essential (primary) hypertension; K21.9 Gastro-esophageal reflux disease without esophagitis; N40.1 Benign prostatic hyperplasia with lower urinary tract symptoms; R00.0 Tachycardia, unspecified; R33.8 Other retention of urine; Z87.891 Personal history of nicotine dependence; Z79.82 Long term (current) use of aspirin; Z79.01 Long term (current) use of anticoagulants; Z96.0 Presence of urogenital implants
CPT/HCPCS: 36415; 71045; 74018; 74177; 74270; 80048; 80053; 81003; 82248; 82570; 82728; 83036; 83605; 83690; 83735; 84295; 84300; 84443; 85014; 85018; 85025; 85027; 85610; 85730; 86850; 86900; 86901; 87040; 93005; 96361; 96365; 96366; 96367; 96375; 99285; A9270; C9113; C9803; G0378; J0744; J1170; J2765; J7040; J7120; Q9967; U0003; U0005